=== PATIENT | male | born 1970 | race Caucasian/White ===

== ENCOUNTER → 2017-02-16 | Outpatient (REF) | payer OTHER | LOC: M SFHCPLAZ 10:09 | PROVIDERS: ATTEND Internal Medicine | DX: E03.9 Hypothyroidism, unspecified (principal) ==

== ENCOUNTER → 2017-10-27 | Outpatient (REF) | payer OTHER ==
[2017-10-27 12:33] LABS: HEMATOCRIT 47.7 % (42.0-52.0); HEMOGLOBIN 15.9 g/dl (14.0-18.0); MEAN CORPUSCULAR HEMOGLOBIN 29.2 pg (27.0-33.0); MEAN CORPUSCULAR HGB CONC 33.3 g/dl (32.0-36.5); MEAN CORPUSCULAR VOLUME 87.5 fl (80.0-96.0); PLATELET COUNT, AUTOMATED 261 10^3/uL (150-450); RED BLOOD COUNT 5.45 10^6/uL (4.30-6.10); RED CELL DISTRIBUTION WIDTH 12.7 % (11.5-14.5); WHITE BLOOD COUNT 5.1 10^3/uL (4.0-10.0)
[2017-10-27 13:18] LABS: TOTAL 25(OH) VITAMIN D 41.5 NG/ML (30.0-100.0); VITAMIN B12 LEVEL 570 PG/ML (247-911)
[2017-10-27 13:19] LABS: FOLATE 11.2 NG/ML (>5.4)
[2017-10-27 13:38] LABS: ALBUMIN 4.1 GM/DL (3.2-5.2); ALBUMIN/GLOBULIN RATIO 1.32 (1.00-1.93); ALKALINE PHOSPHATASE 86 U/L (45-117); ALT/SGPT 32 U/L (12-78); ANION GAP 4 MEQ/L (8-16); AST/SGOT 29 U/L (7-37); BILIRUBIN,TOTAL 0.4 MG/DL (0.2-1.0); BLOOD UREA NITROGEN 16 MG/DL (7-18); CALCIUM LEVEL 8.5 MG/DL (8.5-10.1); CARBON DIOXIDE LEVEL 30 MEQ/L (21-32); CHLORIDE LEVEL 109 MEQ/L (98-107); CHOLESTEROL LEVEL 171 MG/DL (<200); CHOLESTEROL RISK RATIO 6.333 (<5); CREATININE FOR GFR 1.28 MG/DL (0.70-1.30); GLOMERULAR FILTRATION RATE > 60.0 (>60); GLUCOSE, FASTING 104 MG/DL (70-100); HDL CHOLESTEROL 27 MG/DL (>40); LDL CHOLESTEROL 114.4 MG/DL (<100); NON-HDL-C 144 MG/DL; POTASSIUM SERUM 4.5 MEQ/L (3.5-5.1); PSA SCREENING 2.23 NG/ML (< 4.0); SODIUM LEVEL 143 MEQ/L (136-145); THYROID STIMULATING HORMONE 0.854 uIU/ML (0.358-3.740); TOTAL PROTEIN 7.2 GM/DL (6.4-8.2); TRIGLYCERIDES LEVEL 148 MG/DL (<150)
== END ==
LOC: M SFHCADAM 08:26
DX: E03.9 Hypothyroidism, unspecified (principal); E78.00 Pure hypercholesterolemia, unspecified; R53.83 Other fatigue; E55.9 Vitamin D deficiency, unspecified

== ENCOUNTER → 2018-04-14 | Outpatient (REF) | payer OTHER ==
[2018-04-14 13:40] LABS: ALBUMIN/GLOBULIN RATIO 1.11 (1.00-1.93); ALKALINE PHOSPHATASE 98 U/L (45-117); ALT/SGPT 42 U/L (12-78); ANION GAP 6 MEQ/L (8-16); AST/SGOT 35 U/L (7-37); BILIRUBIN,TOTAL 0.6 MG/DL (0.2-1.0); BLOOD UREA NITROGEN 18 MG/DL (7-18); CALCIUM LEVEL 8.8 MG/DL (8.5-10.1); CARBON DIOXIDE LEVEL 30 MEQ/L (21-32); CHLORIDE LEVEL 108 MEQ/L (98-107); CHOLESTEROL LEVEL 187 MG/DL (<200); CHOLESTEROL RISK RATIO 7.192 (<5); FREE T4 1.03 NG/DL (0.76-1.46); GLOMERULAR FILTRATION RATE > 60.0 (>60); GLUCOSE, FASTING 99 MG/DL (70-100); HDL CHOLESTEROL 26 MG/DL (>40); LDL CHOLESTEROL 114.4 MG/DL (<100); NON-HDL-C 161 MG/DL; POTASSIUM SERUM 4.8 MEQ/L (3.5-5.1); SODIUM LEVEL 144 MEQ/L (136-145); TOTAL PROTEIN 7.6 GM/DL (6.4-8.2); TRIGLYCERIDES LEVEL 233 MG/DL (<150)
[2018-04-14 14:16] LABS: ESTIMATED AVERAGE GLUCOSE 117 MG/DL (60-110); HEMOGLOBIN A1c 5.7 %
== END ==
LOC: M SFHCADAM 08:32
DX: E78.00 Pure hypercholesterolemia, unspecified (principal); E03.9 Hypothyroidism, unspecified; R73.03 Prediabetes

== ENCOUNTER → 2019-05-12 | Outpatient (REF) | payer OTHER | LOC: M SFHCPLAZ 16:51 | PROVIDERS: ATTEND Dermatology | DX: D49.2 Neoplasm of unspecified behavior of bone, soft tissue, and skin (principal) ==

== ENCOUNTER → 2019-08-11 | Outpatient (CLI) | payer OTHER ==
--- NOTE | 2019-08-11 11:13 | REP ---
Lumbar spine series: Five views. History: Low back sprain. Findings: There are clips in right upper quadrant post cholecystectomy. Lumbar vertebral body heights are preserved. Alignment is normal. There is mild disc space narrowing at L4-5. Other disc spaces are preserved. Pedicles and posterior elements are intact. There is no evidence of spondylolysis or spondylolisthesis. Sacrum and SI joints are unremarkable. Psoas margins are symmetric. Impression: Mild degenerative narrowing of the L4-5 disc. Otherwise negative. Electronically Signed by Vance Arevalo MD 08/11/2019 11:05 A
== END ==
LOC: M ADAMS 08:48
PROVIDERS: ATTEND Family Medicine
DX: M48.061 Spinal stenosis, lumbar region without neurogenic claudication (principal); S33.5XXA Sprain of ligaments of lumbar spine, initial encounter; X58.XXXA Exposure to other specified factors, initial encounter

== ENCOUNTER → 2019-08-11 | Outpatient (REF) | payer OTHER ==
[2019-08-11 13:07] LABS: HEMATOCRIT 46.3 % (42.0-52.0); HEMOGLOBIN 14.9 g/dl (13.5-17.5); MEAN CORPUSCULAR HEMOGLOBIN 28.7 pg (27.0-33.0); MEAN CORPUSCULAR HGB CONC 32.2 g/dl (32.0-36.5); MEAN CORPUSCULAR VOLUME 89.2 fl (80.0-96.0); PLATELET COUNT, AUTOMATED 307 10^3/uL (150-450); RED BLOOD COUNT 5.19 10^6/uL (4.30-6.10); WHITE BLOOD COUNT 5.5 10^3/uL (4.0-10.0)
[2019-08-11 13:22] LABS: ALBUMIN 3.6 GM/DL (3.2-5.2); ALT/SGPT 37 U/L (12-78); BILIRUBIN,TOTAL 0.4 MG/DL (0.2-1.0); BLOOD UREA NITROGEN 20 MG/DL (7-18); CALCIUM LEVEL 9.1 MG/DL (8.5-10.1); CARBON DIOXIDE LEVEL 31 MEQ/L (21-32); CHLORIDE LEVEL 107 MEQ/L (98-107); CHOLESTEROL LEVEL 170 MG/DL (<200); CREATININE FOR GFR 1.33 MG/DL (0.70-1.30); FREE T4 1.04 NG/DL (0.76-1.46); GLOMERULAR FILTRATION RATE > 60.0 (>60); GLUCOSE, FASTING 98 MG/DL (70-100); HDL CHOLESTEROL 25 MG/DL (>40); LDL CHOLESTEROL 118 MG/DL (<100); MAGNESIUM LEVEL 2.2 MG/DL (1.8-2.4); NON-HDL-C 145 MG/DL; POTASSIUM SERUM 4.5 MEQ/L (3.5-5.1); SODIUM LEVEL 141 MEQ/L (136-145); TRIGLYCERIDES LEVEL 137 MG/DL (<150)
[2019-08-11 14:45] LABS: HEMOGLOBIN A1c 5.8 %
== END ==
LOC: M SFHCADAM 08:48
PROVIDERS: ATTEND Family Medicine
DX: K62.5 Hemorrhage of anus and rectum (principal); K52.9 Noninfective gastroenteritis and colitis, unspecified; E03.9 Hypothyroidism, unspecified; R73.03 Prediabetes; Z12.5 Encounter for screening for malignant neoplasm of prostate
CPT/HCPCS: 80053; 80061; 83036; 83735; 84439; 84443; 85027; G0103

== ENCOUNTER → 2019-08-29 | Outpatient (CLI) | payer OTHER ==
--- NOTE | 2019-08-29 10:18 | REP ---
Clinical: Dyspnea. Technique: PA and lateral. Comparison: 11/24/2010. Findings: Mediastinum and cardiac silhouette are normal. Lung mccormick are clear. No consolidation. No effusion. No pneumothorax. Skeletal structures intact. Impression: No acute cardiopulmonary process appreciated. Electronically Signed by Ranulfo Nieves MD 08/29/2019 10:11 A
== END ==
LOC: M ADAMS 09:53
PROVIDERS: ATTEND Family Medicine
DX: J45.41 Moderate persistent asthma with (acute) exacerbation (principal)

== ENCOUNTER → 2019-09-18 | Outpatient (CLI) | payer OTHER ==
[~2019-09-18] MED LIST: PROHANCE 279.3MG/ML 15ML VIAL (A9576) As Ordered ONE; PROHANCE 279.3MG/ML 5ML VIAL (A9576) As Ordered ONE
--- NOTE | 2019-09-18 16:31 | REPVR ---
PROCEDURE INFORMATION: Exam: MR Lumbar Spine Without and With Contrast. Exam date and time: 09/18/2019 3:11 PM Age: 49 years old Clinical indication: Low back pain; Patient HX: Lbp; Additional info: Lumbar ddd radiculopathy lbp TECHNIQUE: Imaging protocol: Multiplanar magnetic resonance images of the lumbar spine without and with intravenous contrast. Contrast material: ProHance; Contrast volume: 16 ml; Contrast route: 22G ANGIO; COMPARISON: DX SPINE LS COMPLETE 08/11/2019 8:40 AM FINDINGS: Vertebrae: No destructive bony process identified. No acute or chronic bony fracture identified. Spinal cord: The conus tip is at the lower T12 level. Normal signal. No cord compression. No abnormal postcontrast enhancement. L1-L2: No significant disc disease. No significant spinal stenosis. L2-L3: No significant disc disease. No significant spinal stenosis. L3-L4: No significant disc disease. No significant spinal stenosis. L4-L5: Mild disc desiccation (Pfirrmann 3). Mild posterior annular bulging. Central annular fissure without focal disc protrusion. The AP thecal sac dimension is 7.0 mm. Mild RIGHT primary facet osteoarthritis. L5-S1: Mild posterior annular bulging and spondylosis. The AP thecal sac dimension is 11.4 mm. Soft tissues: Unremarkable. IMPRESSION: Moderate L4-5 spinal stenosis. Electronically signed by: Jaison Fisher On 09/18/2019 16:30:38 PM
== END ==
LOC: M RAD 13:21
PROVIDERS: ATTEND Family Medicine
DX: M48.061 Spinal stenosis, lumbar region without neurogenic claudication (principal); M51.37 Other intervertebral disc degeneration, lumbosacral region; M54.16 Radiculopathy, lumbar region
CPT/HCPCS: 72158; A9576

== ENCOUNTER → 2020-06-27 | Outpatient (REF) | payer OTHER ==
[2020-06-27 13:19] LABS: HEMATOCRIT 50.5 % (42.0-52.0); HEMOGLOBIN 16.7 g/dl (13.5-17.5); MEAN CORPUSCULAR HEMOGLOBIN 28.8 pg (27.0-33.0); MEAN CORPUSCULAR HGB CONC 33.1 g/dl (32.0-36.5); MEAN CORPUSCULAR VOLUME 87.2 fl (80.0-96.0); PLATELET COUNT, AUTOMATED 284 10^3/uL (150-450); RED BLOOD COUNT 5.79 10^6/uL (4.30-6.10); WHITE BLOOD COUNT 5.9 10^3/uL (4.0-10.0)
[2020-06-27 13:37] LABS: ALBUMIN 3.9 GM/DL (3.2-5.2); BILIRUBIN,TOTAL 0.5 MG/DL (0.2-1.0); CALCIUM LEVEL 9.3 MG/DL (8.5-10.1); CHOLESTEROL RISK RATIO 7.148 (<5); CREATININE FOR GFR 1.36 MG/DL (0.70-1.30); FREE T4 1.32 NG/DL (0.76-1.46); GLOMERULAR FILTRATION RATE 59.5 (>60); POTASSIUM SERUM 4.2 MEQ/L (3.5-5.1); THYROID STIMULATING HORMONE 0.053 uIU/ML (0.358-3.740); TOTAL PROTEIN 7.4 GM/DL (6.4-8.2)
[2020-06-27 13:38] LABS: HEMOGLOBIN A1c 5.5 %
== END ==
LOC: M SFHCADAM 09:11
PROVIDERS: ATTEND Family Medicine
DX: R05 Cough (principal); E03.9 Hypothyroidism, unspecified; R73.03 Prediabetes; Z12.5 Encounter for screening for malignant neoplasm of prostate
CPT/HCPCS: 80053; 80061; 83036; 84439; 84443; 85027; G0103

== ENCOUNTER → 2020-06-27 | Outpatient (CLI) | payer OTHER ==
--- NOTE | 2020-07-04 08:59 | REP ---
CHEST X-RAY: 3-VIEWS HISTORY: Chronic cough. COMPARISON: Chest x-ray 08/29/2019. FINDINGS: The lungs remain well-inflated and clear. Pleural angles are sharp. Heart is not enlarged. Pulmonary vasculature is not increased. No significantly bony abnormality is seen. There are surgical clips in the right upper quadrant post cholecystectomy. IMPRESSION: No acute disease. MTDD
== END ==
LOC: M ADAMS 09:19
PROVIDERS: ATTEND Family Medicine
DX: R05 Cough (principal)

== ENCOUNTER → 2020-07-10 | Outpatient (CLI) | payer OTHER ==
--- NOTE | 2020-07-10 10:43 | PFTRPT ---
Height: 69.00 Inches Weight: 185.00 Lbs BSA: 2.00 Diagnosis: R05 DATE: 07/10/2020 ORDERING PHYSICIAN: YUSUF Cronin Pre and post bronchodilator studies have excellent technical quality. Forced vital capacity is normal. FEV1 is in proportion, obstructive index is therefore normal. Expiratory limit of the flow-volume loop is normal. No significant bronchodilator response is identified. Total lung capacity is mildly elevated. Residual volume does suggest a degree of air trapping. Diffusing capacity is normal. No hemoglobin available for correction. Airway resistance and conductance are normal. IMPRESSION: Probably normal study. MTDD
== END ==
LOC: M CARPUL 10:03
PROVIDERS: ATTEND Physician Assistant
DX: R05 Cough (principal)

== ENCOUNTER → 2020-07-17 | Outpatient (CLI) | payer OTHER ==
[~2020-07-17] MED LIST changes: +METHACHOLINE KIT (J7674) INH ONE; -PROHANCE 279.3MG/ML 15ML VIAL (A9576) As Ordered ONE; -PROHANCE 279.3MG/ML 5ML VIAL (A9576) As Ordered ONE
--- NOTE | 2020-07-17 14:41 | PFTRPT ---
Height: 69.00 Inches Weight: 185.00 Lbs BSA: 2.00 Diagnosis: R05 DATE: 07/17/2020 ORDERED BY: Yves Juarez M.D. QUALITY: Study of excellent technical quality. PROCEDURE: Under protocol, methacholine was administered. At a dose of 2.5 mg, or 13.875 CDUs, a 27% decline in the FEV1 was noted. PC of 0.54 is significant. Flow rates did return to baseline post bronchodilator administration. IMPRESSION: Positive methacholine challenge study. MTDD
== END ==
LOC: M CARPUL 13:56
PROVIDERS: ATTEND Physician Assistant
DX: R05 Cough (principal)
CPT/HCPCS: 94070; J7674

== ENCOUNTER → 2020-10-04 | Outpatient (REF) | payer OTHER | LOC: M SMT 17:16 | PROVIDERS: ATTEND Urology | DX: Z30.2 Encounter for sterilization (principal) ==

== ENCOUNTER → 2020-12-10 | Outpatient (REF) | payer OTHER ==
[2020-12-10 11:07] LABS: SEMEN APPEARANCE OPAQUE (OPAQUE); SEMEN VISCOSITY VISCOUS (LIQUID); SEMEN VOLUME 0.9 ml (2.0-5.0)
[2020-12-10 11:08] LABS: WBC CONCENTRATION <=1 M/ml (<=1 M/ml)
== END ==
LOC: M SMT 10:59
PROVIDERS: ATTEND Urology
DX: Z98.52 Vasectomy status (principal)

== ENCOUNTER → 2021-04-10 | Outpatient (CLI) | payer OTHER ==
--- NOTE | 2021-04-10 09:12 | REP ---
INDICATION: MEDIAL EPICONDYLE APOPHYSITIS DUE TO OVERUSE COMPARISON: None. TECHNIQUE: AP, lateral, bilateral oblique views of the right elbow. FINDINGS: No acute fracture or dislocation is appreciated. Joint spaces and surrounding soft tissues appear normal. Lateral view demonstrates normal positioning to the anterior and posterior fat pads without evidence for effusion/hemarthrosis. No subcutaneous emphysema or foreign body identified. IMPRESSION: Normal elbow radiographs. <Electronically signed by Ranulfo Nieves > 04/10/21 0975
== END ==
LOC: M ADAMS 08:36
PROVIDERS: ATTEND Family Medicine
DX: M93.929 Osteochondropathy, unspecified, unspecified upper arm (principal)

== ENCOUNTER → 2021-04-23 | Outpatient (CLI) | payer OTHER ==
[2021-04-23 11:08] LABS: BASO % 0.3 % (0.0-1.0); EOS % 0.2 % (0.0-3.0); HEMATOCRIT 50.9 % (42.0-52.0); HEMOGLOBIN 16.9 g/dl (13.5-17.5); LYMPH # 1.6 10^3/uL (1.5-5.0); LYMPH % 13.7 % (24.0-44.0); MEAN CORPUSCULAR HGB CONC 33.2 g/dl (32.0-36.5); MEAN CORPUSCULAR VOLUME 87.3 fl (80.0-96.0); MONO # 1.1 10^3/uL (0.0-0.8); MONO % 9.2 % (2.0-8.0); NEUTROPHILS # 9.1 10^3/uL (1.5-8.5); NEUTROPHILS % 76.2 % (36.0-66.0); PLATELET COUNT, AUTOMATED 294 10^3/uL (150-450); RED BLOOD COUNT 5.83 10^6/uL (4.30-6.10); WHITE BLOOD COUNT 11.9 10^3/uL (4.0-10.0)
--- NOTE | 2021-04-23 11:23 | REP ---
INDICATION: ACUTE DIVERTICULITIS. COMPARISON: None. TECHNIQUE: Noncontrast scanning through the abdomen and pelvis with coronal and sagittal reconstructions. FINDINGS: CT abdomen: Some minor curvilinear atelectatic change inferior lingular segment of the left upper lobe at the anterior left lung base. There is a 5 mm nodule medial segment on image 9 of the right middle lobe. The lung bases otherwise clear. Heart is not enlarged with no pericardial thickening or effusion. No hiatal hernia. The liver, spleen, pancreas and adrenal glands are normal. The gallbladder surgically absent. Kidneys show no stone, cyst, solid mass or hydronephrosis. There is no hydroureter or ureteral stone on either side. Abdominal course of the colon shows stool and gas without signs of colitis or diverticulitis in the abdomen proper appendix is seen and normal. Small bowel loops are unremarkable. Lung window review shows no evidence of a perforation or free air in the abdomen proper. Bone windows show lumbar, lower thoracic spine, their posterior elements and visualized ribs all grossly intact. CT pelvis: Sacrum, SI joints, pelvis and hips are without acute bony findings. There is some minimal degenerative spurring and acetabular margins. The mid to distal sigmoid just above its junction with the rectum shows infiltration of pericolonic fat. There is no micro perforation or abscess. There is no pelvic ascites. Distal small bowel loops were unremarkable. Bladder shows no wall thickening, mass or stone. There are a few small pelvic phleboliths. No ventral or inguinal hernia nor pathologic sized inguinal adenopathy. IMPRESSION: 1. Acute diverticulitis in the mid to distal sigmoid just above the rectum with some mild pericolonic inflammatory changes in the adjacent fat but no perforation, abscess or pelvic ascites. Remainder of the pelvic and abdominal portion of colon and rectum unremarkable. Appendix seen and normal. 2. Status post cholecystectomy. No other significant or acute finding <Electronically signed by Nicholas Lux > 04/23/21 [id number]
[2021-04-23 11:36] LABS: ALBUMIN 4.2 GM/DL (3.2-5.2); BILIRUBIN,TOTAL 0.9 MG/DL (0.2-1.0); CALCIUM LEVEL 9.1 MG/DL (8.5-10.1); CREATININE FOR GFR 1.45 MG/DL (0.70-1.30); GLOMERULAR FILTRATION RATE 55.1 (>60); POTASSIUM SERUM 4.5 MEQ/L (3.5-5.1); TOTAL PROTEIN 7.8 GM/DL (6.4-8.2)
== END ==
LOC: M RAD 10:25
PROVIDERS: ATTEND Family Medicine
DX: K57.32 Diverticulitis of large intestine without perforation or abscess without bleeding (principal); Z90.49 Acquired absence of other specified parts of digestive tract

== ENCOUNTER → 2021-06-10 | Outpatient (CLI) | payer OTHER ==
--- NOTE | 2021-06-10 09:11 | REP ---
INDICATION: PAIN IN RT ELBOW. COMPARISON: Radiographs 04/10/2021. TECHNIQUE: Multiple sequences obtained in the axial, coronal and sagittal planes. FINDINGS: .There is no occult fracture. There is mild global chondromalacia, with minor subchondral marrow edema in the coronoid process. The common flexor and extensor tendons demonstrate no abnormal signal. There is no evidence of epicondylitis. The medial and lateral collateral ligaments are intact. The biceps, triceps, brachialis and brachioradialis appear intact. No ganglion cyst is seen. There is a normal amount of joint fluid. No osteochondral defect is seen. There is no abnormal signal in the region of the cubital tunnel. The ulnar nerve demonstrates no significant enlargement or abnormal signal. IMPRESSION: There is mild global chondromalacia, with minor subchondral marrow edema in the coronoid process. No other significant findings. <Electronically signed by Alfredo Baum > 06/10/21 0907
== END ==
LOC: M PLAIMG 07:53
PROVIDERS: ATTEND Orthopaedic Surgery
DX: M25.521 Pain in right elbow (principal)

== ENCOUNTER → 2021-07-31 | Outpatient (CLI) | payer OTHER ==
[~2021-07-31] MED LIST changes: +BREO1INH INH; +LEVO137T2 PO; +MELO15TA28 PO; -METHACHOLINE KIT (J7674) INH ONE; +PANT40TA29 PO
== END ==
LOC: M LABSMTC 09:28
PROVIDERS: ATTEND Anesthesiology
DX: Z01.812 Encounter for preprocedural laboratory examination (principal); Z20.822 Contact with and (suspected) exposure to COVID-19

== ENCOUNTER 2021-08-05 09:46 | Day surgery (SDC) | payer OTHER ==
[~2021-08-05] VITALS: Ht 175.3 cm; Wt 88.0 kg
[~2021-08-05 09:46] MED LIST changes: +NS 1,000 ML IV ONE
--- OUTSIDE RECORDS SUMMARY | 2021-08-05 09:49 | CCD ---
Author Author [facility] [employer] [facility] [employer] Organization [facility] [employer] Address Unknown Phone Unavailable Care Team Providers Care Canvassing Manager Name Role Phone Yves Juarez Unavailable PROBLEMS Type Condition ICD9-CM Code LMR45-MA Code Onset Dates Condition S tatus W/U Status Risk SNOMED Code Notes Problem Allergic rhinitis J30.9 Active confirmed 61 076897 He will continue his intranasal steroids as needed. I think his blood shot eyes may relate to allergic conjunctivitis and Flonase may help this. Problem Bilateral knee pain M25.561 Active confirmed 35385166 Problem Hypothyroidism E03.9 Active confirmed 55488 008 Hypothyroidism since Summer 2009, at which time his TSH was 377. Has a family history of thyroid disease. On replacement. Problem Primary insomnia F51.01 Active confirmed 397 2004 Problem Functional diarrhea K59.1 Active confirmed 70101844 Problem Vitamin D deficiency E55.9 Active confirmed 56748290 Problem Screening for prostate cancer Z12.5 Active confirm ed 828786458 Problem Moderate persistent asthmatic bronchitis with ac anny exacerbation J45.41 Active confirmed 564317418989145 Problem Degenerative disc disease, lumbar M51.36 Active confirmed 65155919 Problem Seborrheic keratoses L82.1 Active confirmed 193389025 Problem Melanocytic nevi of trunk D22.5 Active confirmed 719404177 Problem Chronic diarrhea K52.9 Active confirmed 236 341886 Problem Actinic keratosis L57.0 Active confirmed 20 0409971 Problem Sprain of low back, initial encounter S33.5XXA A ctive confirmed 987119730 Problem Dyslipidemia E78.5 Active confirmed 1454653 07 Problem Degeneration, intervertebral disc, lumbosacral M51 .37 Active confirmed 10738207 Problem Maxillary sinusitis, unspecified chronicity J32.0 Active confirmed 17669375 Problem Chronic coughing R05 Active confirmed 681 32759 Problem Vasectomy status Z98.52 Active confirmed 161 063113 Problem Sterilization Z30.2 Active confirmed 257316 006 Problem Acute diverticulitis K57.92 Active confirmed 762647997 Problem Melanocytic nevi of left upper limb, including shoulder D22.62 Active confirmed 164410480 Problem Medial epicondyle apophysitis due to overuse M93.9 29 Active confirmed 1014089104327 Problem Prediabetes R73.03 Active confirmed 55292837 2 Problem Melanocytic nevi of right upper limb, including shoulder D22.61 Active confirmed 087768926 Problem Asthma, cough variant J45.991 Active confirmed 687106712 Problem Elevated serum creatinine R79.89 Active confirmed 460369795 elevated creatinine reflects heavily muscled frame, not CKD Problem Moderate persistent asthma without complication J4 5.40 Active confirmed 551184181 Problem Hypercholesterolemia E78.0 Active confirmed 97532595 ALLERGIES Allergen (clinical drug ingredient) Drug/Non Drug Allergy do cumented on EMR Reaction Allergy Type Onset Date Status Penicillin (For Allergies Use Only) Hives Drug Allerg y Active ENCOUNTERS from 1972 to 2021-07-22 Encounter Location Date Provider Diagnosis [facility] [address] [place] [address] Jun, Yves Juarez Medial epicondyle apophysitis due to ove ruse M93.929 ; Hypothyroidism E03.9 ; Prediabetes R73.03 ; Moderate persistent asthma without complication J45.40 ; Hypercholesterolemia E78.0 ; Elevated serum creatinine R79.89 and Screening for prostate cancer Z12.5 IMMUNIZATIONS Vaccine Route Administration Date Status Influenza 18 yrs & older Flublok IM Intramuscular Jun 27, 2020 Administered Influenza 18 yrs & older Flublok IM Intramuscular Aug 29, 2019 Administered TDAP Unknown December 26, 2008 Administered Influenza 6mo & up Fluzone IM Intramuscular Sep 22, 2016 Admi nistered Influenza 6mo & up Fluzone IM Intramuscular Sep 16, 2015 Admi nistered Influenza 6mo & up Fluzone Unknown Aug 06, 2014 Admin istered SOCIAL HISTORY Tobacco Use: Social History Observation Description Date Details (start date - stop date) Never Smoker Sex Assigned At : Social History Observation Description Sex Assigned At Unknown Audit Question Answer Notes Total Score: 2 Interpretation: Alcohol Education Language: Question Answer Notes Languages spoken: Wallisian Jewish: Question Answer Notes Jewish No mandaen beliefs that would impact health care. Sexual Hx: Question Answer Notes Had sex in the last 12 months (vaginal, oral, or anal)? Yes Have you ever had an STD? No with Women only Drug and Alcohol Question Answer Notes Total Score: 0 Interpretation: No problems reported Alcohol Screening: Question Answer Notes Did you have a drink containing alcohol in the past year? Ye s Points 3 Interpretation Negative How often did you have six or more drinks on one occas ion in the past year? Never (0 points) How many drinks did you have on a typica l day when you were drinking in the past year? 1 or 2 (0 points) How often did you have a drink containing alcohol in t he past year? Two to three times per week (3 points) Tobacco Use: Question Answer Notes Are you a: never smoker REASON FOR REFERRAL No Information VITAL SIGNS Weight 195 lbs Jun, Height 69 in Jun, BMI 28.79 kg/m2 Jun, Heart Rate 58 /min Jun, Respiratory Rate 18 /min Jun, Temperature 97.6 degrees Fahrenheit Jun, Oximetry 97 Jun, Blood pressure systolic 122 mm Hg Jun, Blood pressure diastolic 72 mm Hg Jun, MEDICATIONS Medication SIG (Take, Route, Frequency, Duration) Notes Start Da te End Date Status Breo Ellipta 100-25 MCG/INH 1 puff Inhalation Once a day Active Pantoprazole Sodium 40 MG 1 tablet Orally Once a day for 30 day( s) Dec, Active metroNIDAZOLE 500 MG 1 tablet Orally Three times a day for 10 da y(s) Mar, Not-Taking Levothyroxine Sodium 137 MCG TAKE ONE TABLET BY MOUTH EVERY MORNING ON AN EMPTY STOMACH Active Voltaren 1 % to knees Externally three times daily for 30 Days Mar, Active Proventil HFA 108 (90 Base) MCG/ACT 2 puffs as needed Inhalation every 4 hrs for cough/wheezing Active tiZANidine HCl 4 MG 1 tablet as needed Orally th ree times daily as needed for 5 day(s) Aug, Not-Taking Cipro 500 MG 1 tablet Orally every 12 hrs for 10 day(s) Mar, Not-Taking Meloxicam 15 MG 1 tablet Orally once daily as needed for 30 day( s) Aug, Active PROCEDURES No Information RESULTS No Results REASON FOR VISIT 3 month MEDICAL (GENERAL) HISTORY Type Description Date Medical History hypothyroidism Medical History hyperlipidemia/low HDL Medical History allergies Medical History mild BPH Medical History early repolarization on EKG Medical History prediabetes 11/14 Medical History asthma, cough variant--+ methacholine ch allenge 07/16 Medical History (baseline creatinine ~ 1.3-1 .5--reflects heavily muscled frame, not CKD) Surgical History Laparascopic cholecystectomy 07/2002 Surgical History LASIK Eye Surgery 07/[address] Tate removed mole from back-biopsy negative 07/2015 Surgical History vasectomy 10/17 Goals Section No Information Health Concerns No Information MEDICAL EQUIPMENT No Information MENTAL STATUS No Information FUNCTIONAL STATUS No Information ASSESSMENTS Encounter Date Diagnosis Assessment Notes Treatment Notes Treatm ent Clinical Notes Jun, Medial epicondyle apophysitis due to overuse (IC D-10 - M93.929) Jun, Hypothyroidism (ICD-10 - E03.9) Hypothyr oidism since Summer 2009, at which time his TSH was 377. Has a family history of thyroid disease. On replacement. Jun, Prediabetes (ICD-10 - R73.03) Jun, Moderate persistent asthma without compl ication (ICD-10 - J45.40) Jun, Hypercholesterolemia (ICD-10 - E78.0) Jun, Elevated serum creatinine (ICD-10 - R79. 89) elevated creatinine reflects heavily muscled frame, not CKD Jun, Screening for prostate cancer (ICD-10 - Z12.5) PLAN OF TREATMENT Medication Medication Name Sig Start Date Stop Date Proventil HFA 108 (90 Base) MCG/ACT 2 puffs as needed Inhalation every 4 hrs for cough/wheezing Breo Ellipta 100-25 MCG/INH 1 puff Inhalation Once a day Meloxicam 15 MG 1 tablet Orally once daily as needed for 30 day( s) Aug, Levothyroxine Sodium 137 MCG TAKE ONE TABLET BY MOUTH EVERY MORNING ON AN EMPTY STOMACH Future Test Test Name Order Date FREE T4 & TSH PANEL 20211117 LIPID PANEL (CARDIAC RISK) 20211117 Comprehensive Metabolic Profile (CMP) 20211117 HEMOGLOBIN A1c 20211117 PSA SCREENING 20211117 CBC - Complete Blood Count 20211117 Next Appt Details 4 Months with labs Reason: Insurance Providers Payer Name Payer Address Payer Phone Insured Name Patient Relati onship to Insured Coverage Start Date Coverage End Date [facility] [address] [address] [facility] [phone] Crista Sanchez
--- OUTSIDE RECORDS SUMMARY | 2021-08-05 09:49 | CCD | Continuity of Care Document ---
Author Author Harish GUTHRIE MD Organization Unknown Address [address] [address] Phone [phone] Care Team Providers Care Coil Placer Name Role Phone Yves Juarez MD AUTM [phone] Problems Description No Information Available Social History Type Date Description Comments Sex Unknown Allergies, Adverse Reactions, Alerts Description No Information Available Medications Active Medications SIG Qnty Indications Ordering Provide r Date Mobic 15mg Tablets 1 by mouth every day with food or milk 30tabs M25.421 Burke Guthrie MD 06/17 Immunizations Description No Information Available Vital Signs Date Vital Result Comment 05/19/2021 1:56pm Body Temperature 97.5 F Height 68 inches 5'8" Weight 194.00 lb BMI (Body Mass Index) 29.5 kg/m2 Results Description No Information Available Procedures Date Code Description Status 06/17/2021 91040 Office/Outpatient Established Lo w MDM 20-29 Min Completed 05/19/2021 89546 Office/Outpatient New Moderate M DM 45-59 Minutes Completed Medical Devices Description No Information Available Encounters Type Date Location Provider Dx Diagnosis Office Visit 06/17/2021 3:00p Josh Guthrie MD M2 5.421 Effusion, right elbow M25.521 Pain in right elbow Office Visit 05/19/2021 1:30p Josh Guthrie MD M2 5.521 Pain in right elbow Assessments Date Code Description Provider 06/17/2021 M25.421 Effusion, right elbow Burke araujo MD 06/17/2021 M25.521 Pain in right elbow Burke Awan MD 05/19/2021 M25.521 Pain in right elbow Burke Awan MD Plan of Treatment 06/17/2021 - Burke Guthrie MD* M25.421 Effusion, right elbow* New Medication:* Mobic 15 mg - 1 by mouth every day with food or milk * Follow up:* F/U PRN * M25.521 Pain in right elbow Functional Status Description No Information Available Mental Status Description No Information Available Referrals Refer to Dr Reason for Referral Status Appt Date James Guthrie MD MRI APPROVED PER EULALIA FOR MRI OF RIGHT ELBOW (08616) TO KYLIE Becerra [facility] [facility], [address] [place] [address] [phone]
--- OUTSIDE RECORDS SUMMARY | 2021-08-05 09:49 | CCD | Continuity of Care Document ---
Author Author Harish RODRÍGUEZ MD Organization Unknown Address [address] [place] [address] Phone [phone] Care Team Providers Care Research Statistician Name Role Phone Yves Juarez M.D. [facility] [phone] Problems Description No Information Available Social History Type Date Description Comments Sex Unknown ETOH Use 2 A Week Tobacco Use Start: Unknown Non Smoker Allergies and adverse reactions Active Allergies Criticality Reaction | Severity Comments Date Penicillin G Unable to assess criticality 06/19/2021 Medications Active Medications SIG Qnty Indications Ordering Provide r Date Magnesium Citrate 1.745GM/30ML Gwendolyn ution one 10 oz bottle green or clear only, use for additional prep at 2-3 days before procedure 296ml R12 Braxton Rodríguez MD 06/19/2021 Miralax 17GM/Scoop Powder use as directed see dr rodríguez colon preparation instructions 510gm R12 Kyle wing Rodríguez MD 06/19/2021 Levothyroxine Sodium 125mcg Capsul es daily Unknown Pantoprazole Sodium 40mg Tablets DR Daily Unknown Breo Ellipta 100-25mcg/Inh Aerosol 1 inhalation daily Unknown History Medications Milk Of Magnesia 7.75% Suspension take 45 milliliters by mouth about 1-2 days before colonoscopy prep 360ml R12 Braxton Rodríguez MD 06/19/2021 - 06/19/2021 Immunizations Description No Information Available Vital Signs Date Vital Result Comment 06/19/2021 10:50am BP Systolic 119 mmHg BP Diastolic 85 mmHg Height 69 inches 5'9" Weight 190.00 lb BMI (Body Mass Index) 28.1 kg/m2 [place] Body Weight 160 lb Weight 86.184 kg BSA (Body Surface Area) 2.02 m2 Results Description No Information Available Procedures Date Code Description Status 06/19/2021 12299 Office/Outpatient New Moderate M DM 45-59 Minutes Completed Medical Devices Description No Information Available Encounters Type Date Location Provider Dx Diagnosis Office Visit 06/19/2021 10:40a [facility] Braxton Rodríguez MD K57.33 Dvtrcli of lg int w/o perfor ation or abscess w bleeding K21.9 Gastro-esophageal reflux dis ease without esophagitis Assessments Date Code Description Provider 06/19/2021 K57.33 Diverticulitis of la rge intestine without perforation or abscess with bleeding Braxton Rodríguez MD 06/19/2021 K21.9 Gastro-esophageal reflux disease without esophagitis Braxton Rodríguez MD Plan of Treatment 06/19/2021 - Braxton Rodríguez MD* K57.33 Diverticulitis of large intestine without perforation or abscess with bleeding * K21.9 Gastro-esophageal reflux disease without esophagitis * * Recommendations:* GERD: smaller meals, avoid late night eating/laying down for 4 hrs after meals.--EGD, Cont PPI for now Diverticulitis: Colonoscopy to follow up abnormal CT Functional Status Description No Information Available Mental Status Description No Information Available Referrals Refer to Reason for Referral Status Appt Date Braxton Rodríguez M.D. EPIGASTRIC PAIN/NAUSEA Scheduled [facility], Gastroenterology [address] [facility] [address], [address] [place] [address] [phone]
--- OUTSIDE RECORDS SUMMARY | 2021-08-05 09:49 | CCD | Continuity of Care Document ---
Author Author Harish RODRÍGUEZ MD Organization Unknown Address [address] [place] [address] Phone [phone] Care Team Providers Care Electronic Tester Name Role Phone Yves Juarez M.D. [facility] [phone] Problems Description No Information Available Social History Type Date Description Comments Sex Unknown ETOH Use 2 A Week Tobacco Use Start: Unknown Non Smoker Allergies, Adverse Reactions, Alerts Active Allergies Criticality Reaction | Severity Comments [...] lb BMI (Body Mass Index) 28.1 kg/m2 [place] Body Weight 160 lb Weight 86.184 kg BSA (Body Surface Area) 2.02 m2 Results Description No Information Available Procedures Date Code Description Status 06/19/2021 80072 Office/Outpatient New Moderate M DM 45-59 Minutes Completed Medical Devices Description No Information Available Encounters Type Date Location Provider Dx Diagnosis Office Visit 06/19/2021 10:40a [facility] Pra [facility]ice Braxton Rodríguez MD R12 Heartburn K57.33 Dvtrcli of lg int w/o perfor ation or abscess w bleeding Assessments Date Code Description Provider 06/19/2021 R12 Heartburn Braxton Rodríguez MD 06/19/2021 K57.33 Diverticulitis of la rge intestine without perforation or abscess with bleeding Braxton Rodríguez MD Plan of Treatment 06/19/2021 - Braxton Rodríguez MD* R12 Heartburn * K57.33 Diverticulitis of large intestine without perforation or abscess with bleeding * * New Medication:* Magnesium Citrate 1.745 GM/30ML * Miralax 17 GM/Scoop * Milk Of Magnesia 7.75 % * New Orders:* EGD/Upper Endoscopy, Ordered: 06/19/21 * Endoscopy, Ordered: 06/19/21 * Recommendations:* GERD: smaller meals, avoid late night eating/laying down for 4 hrs after meals.--EGD, Cont PPI for now Diverticulitis: Colonoscopy to follow up abnormal CT Functional Status Description No Information Available Mental Status Description No Information Available Referrals Refer to Reason for Referral Status Appt Braxton Rodríguez M.D. EPIGASTRIC PAIN/NAUSEA Scheduled [facility], Gastroenterology [address] [facility], [address] [place] [address] [phone]
--- OUTSIDE RECORDS SUMMARY | 2021-08-05 09:49 | CCD ---
Continuity of Care Document (CCD) Created on: 05/21/2021 Harish Sanchez External Reference #: [id number] : 1970 Sex: Male Author Author Harish GUTHRIE MD Organization Unknown Address [address] [address] Phone [phone] Care Team Providers Care Ethylbenzene Cracking Supervisor Name Role Phone Yves Juarez MD [facility] [phone] Problems Description No Information Available Social History Type Date Description Comments Sex Unknown Allergies, Adverse Reactions, Alerts Description No Information Available Medications Description No Information Available Immunizations Description No Information Available Vital Signs Date Vital Result Comment 05/19/2021 1:56pm Body Temperature 97.5 F Height 68 inches 5'8" Weight 194.00 lb BMI (Body Mass Index) 29.5 kg/m2 Results Description No Information Available Procedures Date Code Description Status 05/19/2021 98859 Office/Outpatient New Moderate M DM 45-59 Minutes Completed Medical Devices Description No Information Available Encounters Type Date Location Provider Dx Diagnosis Office Visit 05/19/2021 1:30p Isabela Burke Guthrie MD M2 5.521 Pain in right elbow Assessments Date Code Description Provider 05/19/2021 M25.521 Pain in right elbow Burke Awan MD Plan of Treatment 05/19/2021 - Burke Guthrie MD* M25.521 Pain in right elbow* New Xrays:* MRI Right Elbow, Ordered: 05/19/21 * Follow up:* with [facility] after mri for results Functional Status Description No Information Available Mental Status Description No Information Available Referrals Description No Information Available
--- OUTSIDE RECORDS SUMMARY | 2021-08-05 09:50 | CCD | Continuity of Care Document ---
Author Author Harish GUTHRIE MD Organization Unknown Address [address] [place] [address] Phone [phone] Care Team Providers Care Sidewalk Repairer Name Role Phone Yves Juarez MD [facility] [phone] Problems Description No Information Available Social History Type Date Description Comments Sex Unknown Allergies, Adverse Reactions, Alerts Description No Information Available Medications Description No Information Available Immunizations Description No Information Available Vital Signs Date Vital Result Comment 05/19/2021 1:56pm Body Temperature 97.5 F Height 68 inches 5'8" Weight 194.00 lb BMI (Body Mass Index) 29.5 kg/m2 Results Description No Information Available Procedures Description No Information Available Medical Devices Description No Information Available Encounters Description No Information Available Assessments Date Code Description Provider 05/19/2021 M25.521 [...]
--- OUTSIDE RECORDS SUMMARY | 2021-08-05 09:50 | CCD ---
Author Author [facility] Organization [facility] Address Unknown Phone Unavailable Care Team Providers Care Sales Promoter Name Role Phone Bradshaw, Kelli SUPERVISOR VAT [employer]SE Unavailable Unavailable Bradshaw, Kelli SUPERVISOR VAT [employer]SE Unavailable Unavailable Bradshaw, Kelli SUPERVISOR VAT HOUSE Unavailable Unavailable Bradshaw, Kelli SUPERVISOR VAT HOUSE Unavailable Unavailable Bradshaw, Kelli SUPERVISOR VAT HOUSE Unavailable Unavailable Bradshaw, Kelli SUPERVISOR VAT HOUSE Unavailable Unavailable Bradshaw, Kelli SUPERVISOR VAT HOUSE Unavailable Unavailable Bradshaw, Kelli SUPERVISOR VAT HOUSE Unavailable Unavailable Bradshaw, Kelli SUPERVISOR VAT HOUSE Unavailable Unavailable Bradshaw, Kelli SUPERVISOR VAT HOUSE Unavailable Unavailable Bradshaw, Kelli SUPERVISOR VAT HOUSE Unavailable Unavailable Bradshaw, Kelli SUPERVISOR VAT HOUSE Unavailable Unavailable Bradshaw, Kelli SUPERVISOR VAT HOUSE Unavailable Unavailable WALKER RAMIRES MD Unavailable Unavailable WALKER RAMIRES MD Unavailable Unavailable WALKER RAMIRES MD Unavailable Unavailable WALKER RAMIRES MD Unavailable Unavailable WALKER RAMIRES MD Unavailable Unavailable WALKER RAMIRES MD Unavailable Unavailable WALKER RAMIRES MD Unavailable Unavailable WALKER RAMIRES MD Unavailable Unavailable WALKER RAMIRES MD Unavailable Unavailable WALKER RAMIRES MD Unavailable Unavailable WALKER RAMIRES MD Unavailable Unavailable WALKER RAMIRES MD Unavailable Unavailable WALKER RAMIRES MD Unavailable Unavailable WALKER RAMIRES MD Unavailable Unavailable WALKER RAMIRES MD Unavailable Unavailable WALKER RAMIRES MD Unavailable Unavailable WALKER RAMIRES MD Unavailable Unavailable WALKER RAMIRES MD Unavailable Unavailable WALKER RAMIRES MD Unavailable Unavailable WAKLER RAMIRES MD Unavailable Unavailable WALKER RAMIRES MD Unavailable Unavailable WALKER RAMIRES MD Unavailable Unavailable REINDL, WALKER RODAS Unavailable Unavailable REINDL, WALKER RODAS Unavailable Unavailable REINDL, WALKER RODAS Unavailable Unavailable REINDL, WALKER RODAS Unavailable Unavailable REINDL, WALKER RODAS Unavailable Unavailable REINDL, WALKER RODAS Unavailable Unavailable REINDL, WALKER RODAS Unavailable Unavailable REINDL, WALKER RODAS Unavailable Unavailable REINDL, WALKER RODAS Unavailable Unavailable REINDL, WALKER RODAS Unavailable Unavailable REINDL, WALKER RODAS Unavailable Unavailable REINDL, WALKER RODAS Unavailable Unavailable REINDL, WALKER RODAS Unavailable Unavailable REINDL, WALKER RODAS Unavailable Unavailable REINDL, WALKER RODAS Unavailable Unavailable REINDL, WALKER RODAS Unavailable Unavailable REINDL, WALKER RODAS Unavailable Unavailable REINDL, WALKER RODAS Unavailable Unavailable REINDL, WALKER RODAS Unavailable Unavailable REINDL, WALKER RODAS Unavailable Unavailable Vaneenenaam, James Jett MD Unavailable Unavailable Vaneenenaam, James Jett MD Unavailable Unavailable Vaneenenaam, James Jett MD Unavailable Unavailable Vaneenenaam, James Jett MD Unavailable Unavailable Vaneenenaam, James Jett MD Unavailable Unavailable Vaneenenaam, James Jett MD Unavailable Unavailable Vaneenenaam, James Jett MD Unavailable Unavailable Vaneenenaam, James Jett MD Unavailable Unavailable Vaneenenaam, James Jett MD Unavailable Unavailable Vaneenenaam, James Jett MD Unavailable Unavailable Vaneenenaam, James Jett MD Unavailable Unavailable Vaneenenaam, James Jett MD Unavailable Unavailable Vaneenenaam, James Jett MD Unavailable Unavailable Vaneenenaam, James Jett MD Unavailable Unavailable Vaneenenaam, James Jett MD Unavailable Unavailable Vaneenenaam, James Jett MD Unavailable Unavailable Vaneenenaam, James Jett MD Unavailable Unavailable Vaneenenaam, James Jett MD Unavailable Unavailable Vaneenenaam, James Jett MD Unavailable Unavailable Vaneenenaam, James Jett MD Unavailable Unavailable Vaneenamosam, James Jett MD Unavailable Unavailable Vaneenenaam, James Jett MD Unavailable Unavailable Vaneenenaam, James Jett MD Unavailable Unavailable Vaneenenaam, James Jett MD Unavailable Unavailable Vaneenenaam, James Jett MD Unavailable Unavailable Vaneenamosam, James Jett MD Unavailable Unavailable Vaneenenaam, James Jett MD Unavailable Unavailable Vaneenamosam, James Jett MD Unavailable Unavailable Vaneenenaam, James Jett MD Unavailable Unavailable Vaneenenaam, James Jett MD Unavailable Unavailable Vaneenenaam, James Jett MD Unavailable Unavailable Vaneenamosam, James Jett MD Unavailable Unavailable Vanandriaam, James Jett MD Unavailable Unavailable Vaneenenaam, James Jett MD Unavailable Unavailable Vaneenenaam, James Jett MD Unavailable Unavailable Vaneenenaam, James Jett MD Unavailable Unavailable Vaneenenaam, D Peter MD Unavailable Unavailable VaneenenaamJames MD Unavailable Unavailable VaneenenaamJames MD Unavailable Unavailable Vaneenenaam, James Jett MD Unavailable Unavailable VaneenenaamJames MD Unavailable Unavailable VaneenenaamJames MD Unavailable Unavailable Vaneenenaam, James Jett MD Unavailable Unavailable Vaneenenaam, James Jett MD Unavailable Unavailable Vaneenenaam, James Jett MD Unavailable Unavailable VaneenenaamJames MD Unavailable Unavailable Re-disclosure Warning The records that you are about to access may contain information from federally-assisted alcohol or drug abuse programs. If such information is present, then the following federally mandated warning applies: This information has been disclosed to you from records protected by federal confidentiality rules (42 CFR part 2). The federal rules prohibit you from making any further disclosure of this information unless further disclosure is expressly permitted by the written consent of the person to whom it pertains or as otherwise permitted by 42 CFR part 2. A general authorization for the release of medical or other information is NOT sufficient for this purpose. The Federal rules restrict any use of the information to criminally investigate or prosecute any alcohol or drug abuse patient.The records that you are about to access may contain highly sensitive health information, the redisclosure of which is protected by Article 27-F of the [facility] Public Health law. If you continue you may have access to information: Regarding HIV / AIDS; Provided by facilities licensed or operated by the [facility] Office of Mental Health; or Provided by the [facility] Office for People With Developmental Disabilities. If such information is present, then the following [facility] mandated warning applies: This information has been disclosed to you from confidential records which are protected by state law. State law prohibits you from making any further disclosure of this information without the specific written consent of the person to whom it pertains, or as otherwise permitted by law. Any unauthorized further disclosure in violation of state law may result in a fine or half-way sentence or both. A general authorization for the release of medical or other information is NOT sufficient authorization for further disc losure. Family History Family Member Name Family Member Gender Family Member Status Date o f Status Description Data Source(s) Unknown Unknown Problem MEDENT ([facility]) Encounters Encounter Providers Location Date Indications Data Source(s ) Outpatient [facility] [place] [address] 07/17/2021 12:00:00 AM EDT eCW1 ([facility]) Outpatient Attender: WALKER [place]/Andre bull 06/19/2021 10:40:00 AM EDT MEDENT ([facility]) OFFICE OUTPATIENT VISIT 15 MINUTES Attender: James browning MD Physical Therapy 06/17/2021 03:00:00 PM EDT MEDENT ([facility]) Outpatient Attender: James Guthrie MD Physical Therap y 05/19/2021 01:30:00 PM EDT [facility] ([facility]) [place] [address] [facility] [address] 04/23/2021 12:00:00 AM EDT eCW1 [facility]) Unknown [address] [facility] [id number] 04/10/2021 12:00:00 AM EDT eCW1 ([facility]) Outpatient [address] [facility] [address] 04/10/2021 12:00:00 AM EDT eCW1 ([facility]) Outpatient [address] [facility] [place] [address] 01/23/2021 12:00:00 AM EDT eCW1 ([facility]) Unknown [address] [facility] [place] [address] 12/10/2020 12:00:00 AM EDT eCW1 ([facility]) Outpatient Attender: Kelli strickland 10/15/2020 10:45:00 AM EST MED[facility] ([facility] ([facility]) Urology [address] [place] [address] 10/04/2020 12:00:00 AM EST eCW1 ([facility]) Unknown [address] [facility] [id number] 09/25/2020 12:00:00 AM EST eCW1 ([facility]) [place] [address] [facility] [address] 07/26/2020 12:00:00 AM EDT eCW1 ([facility]) [place] [address] [facility] [address] 07/26/2020 12:00:00 AM EDT eCW1 ([facility]) [place] [address] [facility] [address] 06/27/2020 12:00:00 AM EDT eCW1 ([facility]) Unknown [address] [facility] [address] 06/27/2020 12:00:00 AM EDT eCW1 ([facility]) Immunizations Vaccine Date Status Description Data Source(s) COVID-19 VACCINE Pfizer 07/02/2021 12:00:00 AM EDT completed [facility] Vaccine Series Complete: YESThis Data wa s Submitted to [facility] Via [employer]. COVID-19 VACC, MRNA(PFIZER)/PF 07/02/2021 12:00:00 AM EDT completed [facility] COVID-19 VACCINE Pfizer 12/06/2020 12:00:00 AM EST completed [facility] Vaccine Series Complete: YESThis Data wa s Submitted to [facility] Via [employer]. COVID-19 VACCINE Pfizer 11/15/2020 12:00:00 AM EST completed [facility] Vaccine Series Complete: NOThis Data was Submitted to [facility] Via [employer]. influenza, recombinant, quadrIvalent,injectable, prese rvative free 06/27/2020 12:03:00 PM EDT completed eCW1 ([facility]) influenza, recombinant, quadrIvalent,injectable, prese rvative free 06/27/2020 12:03:00 PM EDT completed eCW1 ([facility]) influenza, recombinant, quadrIvalent,injectable, prese rvative free 06/27/2020 12:03:00 PM EDT completed eCW1 ([facility]) influenza, recombinant, quadrIvalent,injectable, prese rvative free 06/27/2020 12:03:00 PM EDT completed eCW1 ([facility]) influenza, recombinant, quadrIvalent,injectable, prese rvative free 06/27/2020 12:03:00 PM EDT completed eCW1 ([facility]) influenza, recombinant, quadrIvalent,injectable, prese rvative free 06/27/2020 12:03:00 PM EDT completed eCW1 ([facility]) influenza, recombinant, quadrIvalent,injectable, prese rvative free 06/27/2020 12:03:00 PM EDT completed eCW1 ([facility]) influenza, recombinant, quadrIvalent,injectable, prese rvative free 06/27/2020 12:03:00 PM EDT completed eCW1 ([facility]) influenza, recombinant, quadrIvalent,injectable, prese rvative free 06/27/2020 12:03:00 PM EDT completed eCW1 ([facility]) influenza, recombinant, quadrIvalent,injectable, prese rvative free 06/27/2020 12:03:00 PM EDT completed eCW1 ([facility]) influenza, recombinant, quadrIvalent,injectable, prese rvative free 06/27/2020 12:03:00 PM EDT completed eCW1 ([facility]) influenza, recombinant, quadrIvalent,injectable, prese rvative free 06/27/2020 12:03:00 PM EDT completed eCW1 ([facility]) Medications Medication Brand Name Start Date Product Form Dose Route Admi nistrative Instructions Pharmacy Instructions Status Indications Reaction Description Data Source(s) 15 mg 07/17/2021 12:00:00 AM EDT tablet 30 TAKE ONE TABLET BY MOUTH EVERY DAY NEEDED TAKE ONE TABLET BY MOUTH EVERY DAY NEEDED SOLD: 07/27/2021 [facility] 137 mcg 06/21/2021 12:00:00 AM EDT tablet 90 TAKE ONE TABLET BY MOUTH EVERY MORNING ON AN EMPTY STOMACH TAKE ONE TABLET BY MOUTH EVERY MORNING O N AN EMPTY STOMACH SOLD: 06/24/2021 [facility] MAGNESIUM CITRATE 06/19/2021 12:00:00 AM EDT solution 296 USE FOR ADDITIONAL PREP 2-3 DAYS BEFORE PROCEDURE USE FOR ADDITIONAL PREP 2-3 DAYS BEFORE PROCEDURE SOLD: 06/24/2021 [facility] 17 gram/dose 06/19/2021 12:00:00 AM EDT powder [address] RAMIRES COLON PREPARATION INSTRUCTIONS USE DIRECTED PER DR RAMIRES COLON PREPARATION INSTRUCTIONS SOLD: 06/24/2021 [facility] POLYETHYLENE GLYCOL 3350 142 MG/ML Oral Solution [Miralax] M iralax 06/19/2021 12:00:00 AM EDT active M EDENT ([facility], ) Magnesium Hydroxide 80 MG/ML Oral Suspension Milk Of Magnesi a 06/19/2021 12:00:00 AM EDT ORAL completed MEDENT ([facility]) magnesium citrate 58.2 MG/ML Oral Solution Magnesium Citrate 06/19/2021 12:00:00 AM EDT active MEDENT ([facility]) 15 mg 06/18/2021 12:00:00 AM EDT tablet 30 TAKE ONE TABLET BY MOUTH EVERY DAY WITH FOOD OR MILK TAKE ONE TABLET BY MOUTH EVERY DAY WITH FOOD OR MILK S OLD: 06/24/2021 [facility] meloxicam 15 MG Oral Tablet [Mobic] Mobic 06/17/2021 12:00:00 AM EDT ORAL active [facility] 5 mg/gram (0.5 %) 06/16/2021 12:00:00 AM EDT ointment 3 APPLY THREE TIMES A DAY FOR 5 DAYS TO AFFECTED EYE APPLY THREE TIMES A DAY FOR 5 DAYS TO AF FECTED EYE SOLD: 06/16/2021 [facility] Ciprofloxacin 500 MG Oral Tablet [Cipro] Cipro 500 MG Cipro 500 MG 04/23/2021 12:00:00 AM EDT 1.0 {tablet} suspended Cipro 500 MG eCW1 ([facility]) Metronidazole 500 MG Oral Tablet METRONIDAZOLE 04/23/2021 12:0 0:00 AM EDT tablet 30 TAKE ONE TABLET BY MOUTH THREE T IMES A DAY TAKE ONE TABLET BY MOUTH THREE TIMES A DAY SOLD: 04/23/2021 [facility] Metronidazole 500 MG Oral Tablet metroNIDAZOLE 500 MG metroN IDAZOLE 500 MG 04/23/2021 12:00:00 AM EDT 1.0 {tablet} active metroNIDAZOLE 500 MG eCW1 ([facility]) Ciprofloxacin 500 MG Oral Tablet [Cipro] Cipro 500 MG Cipro 500 MG 04/23/2021 12:00:00 AM EDT 1.0 {tablet} active Ci pro 500 MG eCW1 ([facility]) Metronidazole 500 MG Oral Tablet metroNIDAZOLE 500 MG metroN IDAZOLE 500 MG 04/23/2021 12:00:00 AM EDT 1.0 {tablet} suspende d metroNIDAZOLE 500 MG eCW1 ([facility]) 500 mg 04/23/2021 12:00:00 AM EDT tablet 20 TAKE ONE TABLET BY MOUTH EVERY 12 HOURS TAKE ONE TABLET BY MOUTH EVERY 12 HOURS SOLD: 04/23/2021 [facility] 1 % 04/11/2021 12:00:00 AM EDT gel 100 APPLY TO KNEES THREE TIMES A DAY APPLY TO KNEES THREE TIMES A DAY SOLD: 04/23/2021 [facility] Voltaren 1 % UNK 04/10/2021 12:00:00 AM EDT activ e Voltaren 1 % eCW1 ([facility]) Diclofenac Sodium 0.01 MG/MG Topical Gel [Voltaren] Voltaren 1 % Voltaren 1 % 04/10/2021 12:00:00 AM EDT active Voltaren 1 % eCW1 ([facility]) Voltaren 1 % UNK 04/10/2021 12:00:00 AM EDT activ e Voltaren 1 % eCW1 ([facility]) Diclofenac Sodium 0.01 MG/MG Topical Gel [Voltaren] Voltaren 1 % Voltaren 1 % 04/10/2021 12:00:00 AM EDT active Voltaren 1 % eCW1 ([facility]) pantoprazole 40 MG Delayed Release Oral Tablet PANTOPRAZOLE SODIUM 01/24/2021 12:00:00 AM EDT tablet,delayed release (DR/EC) 30 T COLE ONE TABLET BY MOUTH EVERY DAY TAKE ONE TABLET BY MOUTH EVERY DAY SOLD: 01/29/2021 [facility] pantoprazole 40 MG Delayed Release Oral Tablet PANTOPRAZOLE SODIUM 01/24/2021 12:00:00 AM EDT tablet,delayed release (DR/EC) 30 T COLE ONE TABLET BY MOUTH EVERY DAY TAKE ONE TABLET BY MOUTH EVERY DAY SOLD: 07/28/2021 [facility] pantoprazole 40 MG Delayed Release Oral Tablet PANTOPRAZOLE SODIUM 01/24/2021 12:00:00 AM EDT tablet,delayed release (DR/EC) 30 T COLE ONE TABLET BY MOUTH EVERY DAY TAKE ONE TABLET BY MOUTH EVERY DAY SOLD: 06/27/2021 [facility] pantoprazole 40 MG Delayed Release Oral Tablet Pantopr azole Sodium 40 MG Pantoprazole Sodium 40 MG 01/23/2021 12:00:00 AM EDT 1.0 {tablet} active Pantoprazole Sodium 40 MG eCW1 ( [facility]) pantoprazole 40 MG Delayed Release Oral Tablet Pantopr azole Sodium 40 MG Pantoprazole Sodium 40 MG 01/23/2021 12:00:00 AM EDT 1.0 {tablet} active Pantoprazole Sodium 40 MG eCW1 ( [facility]) pantoprazole 40 MG Delayed Release Oral Tablet Pantopr azole Sodium 40 MG Pantoprazole Sodium 40 MG 01/23/2021 12:00:00 AM EDT 1.0 {tablet} active Pantoprazole Sodium 40 MG eCW1 ( [facility]) pantoprazole 40 MG Delayed Release Oral Tablet Pantopr azole Sodium 40 MG Pantoprazole Sodium 40 MG 01/23/2021 12:00:00 AM EDT 1.0 {tablet} active Pantoprazole Sodium 40 MG eCW1 ( [facility]) pantoprazole 40 MG Delayed Release Oral Tablet Pantopr azole Sodium 40 MG Pantoprazole Sodium 40 MG 01/23/2021 12:00:00 AM EDT 1.0 {tablet} active Pantoprazole Sodium 40 MG eCW1 ( [facility]) 30 ACTUAT fluticasone furoate 0.1 MG/ACT UAT / vilanterol 0.025 MG/ACTUAT Dry Powder Inhaler [Breo] 100-25 mcg/dose FLUTICASONE/VILANTEROL 01/21/2021 12:00 :00 AM EDT blister with device 60 INHALE 1 PUFF ONCE A DAY INHALE 1 PUFF ONCE A DAY SOLD: 07/08/2021 [facility] 30 ACTUAT fluticasone furoate 0.1 MG/ACT UAT / vilanterol 0.025 MG/ACTUAT Dry Powder Inhaler [Breo] 100-25 mcg/dose FLUTICASONE/VILANTEROL 01/21/2021 12:00 :00 AM EDT blister with device 60 INHALE 1 PUFF ONCE A DAY INHALE 1 PUFF ONCE A DAY SOLD: 01/29/2021 [facility] 30 ACTUAT fluticasone furoate 0.1 MG/ACT UAT / vilanterol 0.025 MG/ACTUAT Dry Powder Inhaler [Breo] 100-25 mcg/dose FLUTICASONE/VILANTEROL 01/21/2021 12:00 :00 AM EDT blister with device 60 INHALE 1 PUFF ONCE A DAY INHALE 1 PUFF ONCE A DAY SOLD: 06/10/2021 [facility] 30 ACTUAT fluticasone furoate 0.1 MG/ACT UAT / vilanterol 0.025 MG/ACTUAT Dry Powder Inhaler [Breo] 100-25 mcg/dose FLUTICASONE/VILANTEROL 01/21/2021 12:00 :00 AM EDT blister with device 60 INHALE 1 PUFF ONCE A DAY INHALE 1 PUFF ONCE A DAY SOLD: 04/25/2021 [facility] 0.5 % 10/15/2020 12:00:00 AM EST drops 5 INSTILL ONE DROP TWO TIMES A DAY INTO AFFECTED EYE(S) NEEDED FOR ALLERGY SYMPTOMS/EYE REDNESS INSTILL ONE DROP TWO TIMES A DAY INTO AFFECTED EYE(S) NEEDED FOR ALLERGY SYMPTOMS/EYE REDNESS SOLD: 10/15/2020 [facility] Polymyxin B 05602 UNT/ML / Trimethoprim 1 MG/ML Ophtha lmic Solution Polymyxin B Sulfate/Trimethoprim Sulfate 10/15/2020 12:00:00 AM EST active MEDENT ([facility]) 10,000 unit- 1 mg/mL 10/15/2020 12:00:00 AM EST drops 10 INSTILL ONE DROP FOUR TIMES A DAY INTO AFFECTED EYE DIRECTED FOR 5-7 DAYS INSTILL ONE DROP FOUR TIMES A DAY INTO AFFECTED EYE DIRECTED FOR 5-7 DAYS SOLD: 10/15/2020 [facility] Ketorolac Tromethamine 5 MG/ML Ophthalmic Solution Ketorolac Tromethamine 10/15/2020 12:00:00 AM EST active MEDENT ([facility]) 500 mg 09/23/2020 12:00:00 AM EST tablet 10 TAKE ONE TABLET BY MOUTH EVERY DAY TAKE ONE TABLET BY MOUTH EVERY DAY SOLD: 09/24/2020 [facility] 90 mcg/actuation 07/27/2020 12:00:00 AM EDT HFA aerosol inha ler 6 INHALE 2 PUFFS BY MOUTH EVERY 4 HOURS NEEDED FOR COUGH AND WHEEZING INHALE 2 PUFFS BY MOUTH EVERY 4 HOURS NEEDED FOR COUGH AND WHEEZING SOLD: 07/28/2020 [facility] 30 ACTUAT fluticasone furoate 0.1 MG/ACT UAT / vilanterol 0.025 MG/ACTUAT Dry Powder Inhaler [Breo] Breo Ellipta 100-25 MCG/INH Breo Ellipta 100-25 MCG/INH 07/26/2020 12:00:00 AM EDT 1.0 {puff} active Breo Ellipta 100-25 MCG/INH eCW1 ([facility]) 30 ACTUAT fluticasone furoate 0.1 MG/ACT UAT / vilanterol 0.025 MG/ACTUAT Dry Powder Inhaler [Breo] Breo Ellipta 100-25 MCG/INH Breo Ellipta 100-25 MCG/INH 07/26/2020 12:00:00 AM EDT 1.0 {puff} active Breo Ellipta 100-25 MCG/INH eCW1 ([facility]) 100-25 mcg/dose 07/26/2020 12:00:00 AM EDT blister with patricio ce 60 INHALE 1 PUFF BY MOUTH ONCE DAILY INHALE 1 PUFF BY MOUTH ONCE DAILY SOLD: 09/24/2020 [facility] 100-25 mcg/dose 07/26/2020 12:00:00 AM EDT blister with patricio ce 60 INHALE 1 PUFF BY MOUTH ONCE DAILY INHALE 1 PUFF BY MOUTH ONCE DAILY SOLD: 07/26/2020 [facility] 30 ACTUAT fluticasone furoate 0.1 MG/ACT UAT / vilanterol 0.025 MG/ACTUAT Dry Powder Inhaler [Breo] Breo Ellipta 100-25 MCG/INH Breo Ellipta 100-25 MCG/INH 07/26/2020 12:00:00 AM EDT 1.0 {puff} active Breo Ellipta 100-25 MCG/INH eCW1 ([facility]) 100-25 mcg/dose 07/26/2020 12:00:00 AM EDT blister with patricio ce 60 INHALE 1 PUFF BY MOUTH ONCE DAILY INHALE 1 PUFF BY MOUTH ONCE DAILY SOLD: 11/27/2020 [facility] 30 ACTUAT fluticasone furoate 0.1 MG/ACT UAT / vilanterol 0.025 MG/ACTUAT Dry Powder Inhaler [Breo] Breo Ellipta 100-25 MCG/INH Breo Ellipta 100-25 MCG/INH 07/26/2020 12:00:00 AM EDT 1.0 {puff} active Breo Ellipta 100-25 MCG/INH eCW1 ([facility]) 100-25 mcg/dose 07/26/2020 12:00:00 AM EDT blister with patricio ce 60 INHALE 1 PUFF BY MOUTH ONCE DAILY INHALE 1 PUFF BY MOUTH ONCE DAILY SOLD: 08/26/2020 [facility] 30 ACTUAT fluticasone furoate 0.1 MG/ACT UAT / vilanterol 0.025 MG/ACTUAT Dry Powder Inhaler [Breo] Breo Ellipta 100-25 MCG/INH Breo Ellipta 100-25 MCG/INH 07/26/2020 12:00:00 AM EDT 1.0 {puff} active Breo Ellipta 100-25 MCG/INH eCW1 ([facility]) 100-25 mcg/dose 07/26/2020 12:00:00 AM EDT blister with patricio ce 60 INHALE 1 PUFF BY MOUTH ONCE DAILY INHALE 1 PUFF BY MOUTH ONCE DAILY SOLD: 12/25/2020 [facility] 100-25 mcg/dose 07/26/2020 12:00:00 AM EDT blister with patricio ce 60 INHALE 1 PUFF BY MOUTH ONCE DAILY INHALE 1 PUFF BY MOUTH ONCE DAILY SOLD: 10/24/2020 [facility] 137 mcg 06/28/2020 12:00:00 AM EDT tablet 90 TAKE ONE TABLET BY MOUTH EVERY MORNING ON AN EMPTY STOMACH TAKE ONE TABLET BY MOUTH EVERY MORNING O N AN EMPTY STOMACH SOLD: 06/29/2020 [facility] 137 mcg 06/28/2020 12:00:00 AM EDT tablet 90 TAKE ONE TABLET BY MOUTH EVERY MORNING ON AN EMPTY STOMACH TAKE ONE TABLET BY MOUTH EVERY MORNING O N AN EMPTY STOMACH SOLD: 03/25/2021 [facility] 137 mcg 06/28/2020 12:00:00 AM EDT tablet 90 TAKE ONE TABLET BY MOUTH EVERY MORNING ON AN EMPTY STOMACH TAKE ONE TABLET BY MOUTH EVERY MORNING O N AN EMPTY STOMACH SOLD: 09/25/2020 [facility] 137 mcg 06/28/2020 12:00:00 AM EDT tablet 90 TAKE ONE TABLET BY MOUTH EVERY MORNING ON AN EMPTY STOMACH TAKE ONE TABLET BY MOUTH EVERY MORNING O N AN EMPTY STOMACH SOLD: 12/25/2020 [facility] Levothyroxine Sodium 0.137 MG Oral Tablet Levothyroxin e Sodium 137 MCG Levothyroxine Sodium 137 MCG 06/27/2020 12:00:00 AM EDT active Levothyroxine Sodium 137 MCG eCW1 ([facility]) Levothyroxine Sodium 0.137 MG Oral Tablet Levothyroxin e Sodium 137 MCG Levothyroxine Sodium 137 MCG 06/27/2020 12:00:00 AM EDT active Levothyroxine Sodium 137 MCG eCW1 ([facility]) Levothyroxine Sodium 0.137 MG Oral Tablet Levothyroxin e Sodium 137 MCG Levothyroxine Sodium 137 MCG 06/27/2020 12:00:00 AM EDT active Levothyroxine Sodium 137 MCG eCW1 ([facility]) Levothyroxine Sodium 0.137 MG Oral Tablet Levothyroxin e Sodium 137 MCG Levothyroxine Sodium 137 MCG 06/27/2020 12:00:00 AM EDT active Levothyroxine Sodium 137 MCG eCW1 ([facility]) Levothyroxine Sodium 0.137 MG Oral Tablet Levothyroxin e Sodium 137 MCG Levothyroxine Sodium 137 MCG 06/27/2020 12:00:00 AM EDT active Levothyroxine Sodium 137 MCG eCW1 ([facility]) Levothyroxine Sodium 0.137 MG Oral Tablet Levothyroxin e Sodium 137 MCG Levothyroxine Sodium 137 MCG 06/27/2020 12:00:00 AM EDT active Levothyroxine Sodium 137 MCG eCW1 ([facility]) Levothyroxine Sodium 0.137 MG Oral Tablet Levothyroxin e Sodium 137 MCG Levothyroxine Sodium 137 MCG 06/27/2020 12:00:00 AM EDT active Levothyroxine Sodium 137 MCG eCW1 ([facility]) Levothyroxine Sodium 0.137 MG Oral Tablet Levothyroxin e Sodium 137 MCG Levothyroxine Sodium 137 MCG 06/27/2020 12:00:00 AM EDT active Levothyroxine Sodium 137 MCG eCW1 ([facility]) Levothyroxine Sodium 0.137 MG Oral Tablet Levothyroxin e Sodium 137 MCG Levothyroxine Sodium 137 MCG 06/27/2020 12:00:00 AM EDT active Levothyroxine Sodium 137 MCG eCW1 ([facility]) Levothyroxine Sodium 0.137 MG Oral Tablet Levothyroxin e Sodium 137 MCG Levothyroxine Sodium 137 MCG 06/27/2020 12:00:00 AM EDT active Levothyroxine Sodium 137 MCG eCW1 ([facility]) Levothyroxine Sodium 0.137 MG Oral Tablet Levothyroxin e Sodium 137 MCG Levothyroxine Sodium 137 MCG 06/27/2020 12:00:00 AM EDT active Levothyroxine Sodium 137 MCG eCW1 ([facility]) Insurance Providers Payer name Policy type / Coverage type Policy ID Covered constitution party ID Covered constitution party's relationship to rojas Policy Rojas Plan Information [employer] [id number] Self [id number] POMCO [id number] Self [id number] POMCO U [id number] [facility] [id number] [facility] EXCHANGE U [id number] [facility] [id number] [facility] [id number] ANSI-Not a Secondary Insurance [id number] [facility] [id number] [facility] [id number] ANSI-Not a Secondary Insurance [id number] [facility] Commercial [id number] Self [id number] [employer] PPO [id number] SP [id number] BCBS [place] PPO [id number] SP [id number] ANSI-Not a Secondary Insurance [id number] R [facility] [id number] [facility] [id number] UMR O [id number] S [id number] UMR O [id number] S [id number] Problems, Conditions, and Diagnoses Code Display Name Description Problem Type Effective Dates Data Source(s) K57.92 [id number] Acute diverticulitis Problem 04/23/2021 12:0 0:00 AM EDT eCW1 ([facility]) M93.929 [id number] Medial epicondyle apophysitis due to ove ruse Problem 04/10/2021 12:00:00 AM EDT eCW1 ([facility]) E78.0 Hypercholesterolemia Hypercholesterolemia Problem 01/23/2021 12:00:00 AM EDT eCW1 ([facility]) J45.40 [id number] Moderate persistent asthma without compli cation Problem 01/23/2021 12:00:00 AM EDT eCW1 ([facility]) R79.89 [id number] Elevated serum creatinine Problem 01/23/2021 12:00:00 AM EDT eCW1 ([facility]) Z30.2 Sterilization procedure Sterilization Problem 12:00:00 AM EST eCW1 ([facility]) Z98.52 History of vasectomy Vasectomy status Problem 12:00:00 AM EST eCW1 ([facility]) J45.991 [id number] Asthma, cough variant Problem 07/26/2020 12: 00:00 AM EDT eCW1 ([facility]) R05 [id number] Chronic coughing Problem 06/27/2020 12:00:00 AM EDT eCW1 ([facility]) Surgeries/Procedures Procedure Description Date Indications Data Source(s) OFFICE OUTPATIENT NEW 45 MINUTES 06/19/2021 12:00:00 A M EDT MEDENT ([facility]) OFFICE OUTPATIENT VISIT 15 MINUTES 06/17/2021 12:00:00 AM EDT MEDENT ([facility]) OFFICE OUTPATIENT NEW 45 MINUTES 05/19/2021 12:00:00 A M EDT MEDENT ([facility]) Immunization: Flublok Quadrivalent (18 years & older) 0.5mL IM (Influenza) 06/27/2020 12:00:00 AM EDT eCW1 ([facility]) Results ID Date Data Source CT ABD & Pelvis w/o Contrast 04/23/2021 12:00:00 AM EDT eCW1 ([facility]) Name Value Range Interpretation Code Description Data Jaida rce(s) Supporting Document(s) CT ABD & Pelvis w/o Contrast e CW1 ([facility]) ID Date Data Source Comprehensive Metabolic Profile (CMP) 04/23/2021 12:00:00 AM EDT eCW1 ([facility]) Name Value Range Interpretation Code Description Data Jaida rce(s) Supporting Document(s) 97 70-100 GLUCOSE, FASTING eCW1 ([facility]) 17 7-18 BLOOD UREA NITROGEN eCW1 ([facility]) 55.1 >60 GLOMERULAR FILTRATION RATE eCW 1 ([facility]) 1.45 0.70-1.30 CREATININE FOR GFR eCW1 ([facility]) 106 98-107 CHLORIDE LEVEL eCW1 ([facility]) 4.5 3.5-5.1 POTASSIUM SERUM eCW1 ([facility]) 140 136-145 SODIUM LEVEL eCW1 ([facility]) 32 21-32 CARBON DIOXIDE LEVEL eCW1 ([facility]) 9.1 8.5-10.1 CALCIUM LEVEL eCW1 ([facility]) 25 7-37 AST/SGOT eCW1 ([facility]) 33 12-78 ALT/SGPT eCW1 ([facility]) 111 45-117 ALKALINE PHOSPHATASE eCW1 ([facility]) 0.9 0.2-1.0 BILIRUBIN,TOTAL eCW1 ([facility]) 7.8 6.4-8.2 TOTAL PROTEIN eCW1 ([facility]) 4.2 3.2-5.2 ALBUMIN eCW1 ([facility]) 1.2 ALBUMIN/GLOBULIN RATIO eCW1 ([facility]) ID Date Data Source CBC with Differential 04/23/2021 12:00:00 AM EDT eCW1 ([facility]) Name Value Range Interpretation Code Description Data Jaida rce(s) Supporting Document(s) 11.9 4.0-10.0 WHITE BLOOD COUNT eCW1 ([facility]) 5.83 4.30-6.10 RED BLOOD COUNT eCW1 ([facility]) 50.9 42.0-52.0 HEMATOCRIT eCW1 ([facility]) 16.9 13.5-17.5 HEMOGLOBIN eCW1 ([facility]) 29.0 27.0-33.0 MEAN CORPUSCULAR HEMOGLOB IN eCW1 ([facility]) 33.2 32.0-36.5 MEAN CORPUSCULAR HGB CONC eCW1 ([facility]) 87.3 80.0-96.0 MEAN CORPUSCULAR VOLUME e CW1 ([facility]) 76.2 36.0-66.0 NEUTROPHILS % eCW1 ([facility]) 12.6 11.5-14.5 RED CELL DISTRIBUTION WID TH eCW1 ([facility]) 294 150-450 PLATELET COUNT, AUTOMATED eCW1 ([facility]) 0.2 0.0-3.0 EOS % eCW1 ([facility]) 9.2 2.0-8.0 MONO % eCW1 ([facility]) 13.7 24.0-44.0 LYMPH % eCW1 ([facility]) 9.1 1.5-8.5 NEUTROPHILS # eCW1 ([facility]) 0.3 0.0-1.0 BASO % eCW1 ([facility]) 1.6 1.5-5.0 LYMPH # eCW1 ([facility]) 1.1 0.0-0.8 MONO # eCW1 ([facility]) 0.0 0.0-0.5 EOS # eCW1 ([facility]) 0.0 0.0-0.2 BASO # eCW1 ([facility]) ID Date Data Source ADM ELBOW COMPLETE 04/10/2021 12:00:00 AM EDT eCW1 ([facility]) Name Value Range Interpretation Code Description Data Jaida rce(s) Supporting Document(s) ADM ELBOW COMPLETE eCW1 ([facility]) ID Date Data Source LIPID PANEL (CARDIAC RISK) 01/23/2021 12:00:00 AM EDT eCW1 ( [facility]) Name Value Range Interpretation Code Description Data Jaida rce(s) Supporting Document(s) Cholesterol [Moles/volume] in Serum or Plasma 188 <200 CHOLESTEROL LEVEL eCW1 ([facility]) Triglyceride [Mass/volume] in Serum or Plasma by calculation 206 <150 TRIGLYCERIDES LEVEL eCW1 ([facility]) Cholesterol in HDL [Moles/volume] in Serum or Plasma 25 >40 HDL CHOLESTEROL eCW1 ([facility]) Cholesterol in LDL [Mass/volume] in Serum or Plasma by calculation 122 <100 LDL CHOLESTEROL eC1 ([facility]) 7.520 <5 CHOLESTEROL RISK RATIO eCW ([facility]) 163 NON-HDL-C [facility] ([facility]) ID Date Data Source FREE T4 & TSH PANEL 01/23/2021 12:00:00 AM EDT [facility] ([facility]) Name Value Range Interpretation Code Description Data Jaida rce(s) Supporting Document(s) 0.393 0.358-3.740 THYROID STIMULATING HORM ONE eCW1 ([facility]) 1.28 0.76-1.46 FREE T4 eCW1 ([facility]) ID Date Data Source LIPASE 01/23/2021 12:00:00 AM EDT eCW1 ([facility]) Name Value Range Interpretation Code Description Data Jaida rce(s) Supporting Document(s) 190 73-393 LIPASE eCW1 ([facility]) ID Date Data Source [id number] 01/23/2021 12:00:00 AM EDT eCW1 ([facility]) Name Value Range Interpretation Code Description Data Jaida rce(s) Supporting Document(s) Hemoglobin A1c/Hemoglobin.total in Blood 5.2 HEMOGLOBIN A1c eCW1 ([facility]) ID Date Data Source CBC - Complete Blood Count 01/23/2021 12:00:00 AM EDT eCW1 ( [facility]) Name Value Range Interpretation Code Description Data Jaida rce(s) Supporting Document(s) 6.9 4.0-10.0 WHITE BLOOD COUNT eCW1 ([facility]) 5.68 4.30-6.10 RED BLOOD COUNT eCW1 ([facility]) 88.4 80.0-96.0 MEAN CORPUSCULAR VOLUME e CW1 ([facility]) 16.7 13.5-17.5 HEMOGLOBIN eCW1 ([facility]) 50.2 42.0-52.0 HEMATOCRIT eCW1 ([facility]) 33.3 32.0-36.5 MEAN CORPUSCULAR HGB CONC eCW1 ([facility]) 29.4 27.0-33.0 MEAN CORPUSCULAR HEMOGLOB IN eCW1 ([facility]) 280 150-450 PLATELET COUNT, AUTOMATED eCW1 ([facility]) 12.1 11.5-14.5 RED CELL DISTRIBUTION WID TH eCW1 ([facility]) ID Date Data Source AMYLASE 01/23/2021 12:00:00 AM EDT eCW1 ([facility]) Name Value Range Interpretation Code Description Data Jaida rce(s) Supporting Document(s) 81 [id number] AMYLASE eCW1 ([facility]) ID Date Data Source 492 09/23/2020 12:00:00 AM EST [facility] Name Value Range Interpretation Code Description Data Jaida rce(s) Supporting Document(s) SARS-CoV2 Rapid Antigen [facility] This lab was ordered by [facility] and reported by [facility]. ID Date Data Source ADM CHEST 2 VIEW 07/04/2020 06:44:35 AM EDT eCW1 ([facility]) Name Value Range Interpretation Code Description Data Jaida rce(s) Supporting Document(s) eCW1 ([facility]) ID Date Data Source PSA SCREENING 06/27/2020 03:08:38 AM EDT eCW1 ([facility]) Name Value Range Interpretation Code Description Data Jaida rce(s) Supporting Document(s) 2.49 PSA SCREENING eCW1 ([facility]) Procedure Social History Code Duration Value Status Description Data Source(s ) Smoking 07/17/2021 12:00:00 AM EDT Never Smoker completed Never S moker eCW1 ([facility]) Smoking 04/23/2021 12:00:00 AM EDT Never Smoker completed Never S moker eCW1 ([facility]) Smoking 04/10/2021 12:00:00 AM EDT Never Smoker completed Never S moker eCW1 ([facility]) Smoking 04/10/2021 12:00:00 AM EDT Never Smoker completed Never S moker eCW1 ([facility]) Smoking 01/23/2021 12:00:00 AM EDT Never Smoker completed Never S moker eCW1 ([facility]) Smoking 10/04/2020 12:00:00 AM EST Never Smoker completed Never S moker eCW1 ([facility]) Smoking 10/04/2020 12:00:00 AM EST Never Smoker completed Never S moker eCW1 ([facility]) Smoking 07/26/2020 12:00:00 AM EDT Never Smoker completed Never S moker eCW1 ([facility]) Smoking 07/26/2020 12:00:00 AM EDT Never Smoker completed Never S moker eCW1 ([facility]) Smoking 07/26/2020 12:00:00 AM EDT Never Smoker completed Never S moker eCW1 ([facility]) Smoking 06/27/2020 12:00:00 AM EDT Never Smoker completed Never S moker eCW1 ([facility]) Smoking 06/27/2020 12:00:00 AM EDT Never Smoker completed Never S moker eCW1 ([facility]) Vital Signs ID Date Data Source UNK Name Value Range Interpretation Code Description Data Source(s) Body weight 195 [lb_av] 195 [lb_av] eCW1 ([facility]) Body height 69 [in_i] 69 [in_i] eCW1 ([facility]) Body mass index (BMI) [Ratio] 28.79 kg/m2 28.79 kg/m2 eCW1 ([facility]) Heart rate 58 /min 58 /min eCW1 ([facility]) Respiratory rate 18 /min 18 /min eCW1 ([facility] by [facility]) Body temperature 97.6 [degF] 97.6 [degF] eCW1 ( [facility]) Systolic blood pressure 122 mm[Hg] 122 mm[Hg] e CW1 ([facility]) Diastolic blood pressure 72 mm[Hg] 72 mm[Hg] eCW1 ([facility]) Systolic blood pressure 119 mm[Hg] 119 mm[Hg] M EDENT ([facility], ) Diastolic blood pressure 85 mm[Hg] 85 mm[Hg] MEDENT ([facility], ) Body height 69 [in_i] 69 [in_i] MEDENT ([facility], ) 5'9" Body weight 190.00 [lb_av] 190.00 [lb_av] MEDEN T ([facility], ) Body mass index (BMI) [Ratio] 28.1 kg/m2 28.1 k g/m2 MEDENT ([facility], ) Voss body weight 160 [lb_av] 160 [lb_av] MEDEN T ([facility], ) Body weight 86.184 kg 86.184 kg [facility] Body surface area Derived from formula 2.02 m2 2.02 m2 [facility] ([facility]) Body mass index (BMI) [Ratio] 29.5 kg/m2 29.5 k g/m2 MEDENT ([facility]) Body temperature 97.5 [degF] 97.5 [degF] MEDENT ([facility]) Body height 68 [in_i] 68 [in_i] MEDENT ([facility]) 5'8" Body weight 194.00 [lb_av] 194.00 [lb_av] MEDEN T ([facility]) Body weight 197 [lb_av] 197 [lb_av] eCW1 ([facility]) Body height 69 [in_i] 69 [in_i] eCW1 ([facility]) Body mass index (BMI) [Ratio] 29.09 kg/m2 29.09 kg/m2 W1 ([facility]) Heart rate 93 /min 93 /min eCW1 ([facility]) Respiratory rate 18 /min 18 /min eCW1 ([facility]placed by [facility]) Body temperature 97.6 [degF] 97.6 [degF] eCW1 ( [facility]) Systolic blood pressure 120 mm[Hg] 120 mm[Hg] e CW1 ([facility]) Diastolic blood pressure 72 mm[Hg] 72 mm[Hg] eCW1 ([facility]) Body weight 200 [lb_av] 200 [lb_av] eCW1 ([facility]) Body height 69 [in_i] 69 [in_i] eCW1 ([facility]) Body mass index (BMI) [Ratio] 29.53 kg/m2 29.53 kg/m2 W1 ([facility]) Heart rate 72 /min 72 /min eCW1 ([facility]) Respiratory rate 18 /min 18 /min eCW1 ([facility]placed by [facility]) Body temperature 98.1 [degF] 98.1 [degF] eCW1 ( [facility]) Systolic blood pressure 124 mm[Hg] 124 mm[Hg] e CW1 ([facility]) Diastolic blood pressure 72 mm[Hg] 72 mm[Hg] eCW1 ([facility]) Body weight 198 [lb_av] 198 [lb_av] eCW1 ([facility]) Body height 69 [in_i] 69 [in_i] eCW1 ([facility]) Body mass index (BMI) [Ratio] 29.24 kg/m2 29.24 kg/m2 eCW1 ([facility]) Heart rate 74 /min 74 /min eCW1 ([facility]) Respiratory rate 18 /min 18 /min eCW1 ([facility]placed [facility]) Body temperature 96.8 [degF] 96.8 [degF] eCW1 ( [facility]) Systolic blood pressure 122 mm[Hg] 122 mm[Hg] e CW1 ([facility]) Diastolic blood pressure 68 mm[Hg] 68 mm[Hg] eCW1 ([facility]) Systolic blood pressure 116 mm[Hg] 116 mm[Hg] M EDENT ([facility]) Diastolic blood pressure 78 mm[Hg] 78 mm[Hg] MEDENT ([facility], [facility]) Heart rate 59 /min 59 /min MEDENT ([facility], [facility]) Respiratory rate 16 /min 16 /min MEDENT ( [facility] [place]) Oxygen saturation in Arterial blood by Pulse oximetry 99 % 99 % MEDENT ([facility] [place]) Body temperature 98.7 [degF] 98.7 [degF] MEDENT ([facility], [facility]) Body weight 175.00 [lb_av] 175.00 [lb_av] MEDEN T ([facility], [facility]) Body height 69 [in_i] 69 [in_i] MEDENT ([facility] [place]) 5'9" Body mass index (BMI) [Ratio] 25.8 kg/m2 25.8 k g/m2 MEDENT ([facility] [place]) Body weight 200 [lb_av] 200 [lb_av] eCW1 ([facility]) Body height 69 [in_i] 69 [in_i] eCW1 ([facility]) Body mass index (BMI) [Ratio] 29.53 kg/m2 29.53 kg/m2 eCW1 ([facility]) Heart rate 48 /min 48 /min eCW1 ([facility]) Respiratory rate 18 /min 18 /min eCW1 (Replaced by [facility]) Body temperature 97.1 [degF] 97.1 [degF] eCW1 ( [facility]) Systolic blood pressure 124 mm[Hg] 124 mm[Hg] e CW1 ([facility]) Diastolic blood pressure 78 mm[Hg] 78 mm[Hg] eCW1 ([facility]) Body weight 198 [lb_av] 198 [lb_av] eCW1 ([facility]) Body height 69 [in_i] 69 [in_i] eCW1 ([facility]) Body mass index (BMI) [Ratio] 29.24 kg/m2 29.24 kg/m2 eCW1 ([facility]) Heart rate 75 /min 75 /min eCW1 ([facility]) Respiratory rate 18 /min 18 /min eCW1 ([facility]placed by [facility]) Body temperature 97.1 [degF] 97.1 [degF] eCW1 ( [facility]) Systolic blood pressure 122 mm[Hg] 122 mm[Hg] e CW1 ([facility]) Diastolic blood pressure 70 mm[Hg] 70 mm[Hg] eCW1 ([facility]) Body weight 197 [lb_av] 197 [lb_av] eCW1 ([facility]) Body height 69 [in_i] 69 [in_i] eCW1 ([facility]) Body mass index (BMI) [Ratio] 29.09 kg/m2 29.09 kg/m2 eCW1 ([facility]) Heart rate 50 /min 50 /min eCW1 ([facility]) Respiratory rate 18 /min 18 /min eCW1 ([facility]placed by [facility]) Body temperature 96.4 [degF] 96.4 [degF] eCW1 ( [facility]) Systolic blood pressure 108 mm[Hg] 108 mm[Hg] e CW1 ([facility]) Diastolic blood pressure 76 mm[Hg] 76 mm[Hg] eCW1 ([facility]) Body weight 195 [lb_av] 195 [lb_av] eCW1 ([facility]) Body height 69 [in_i] 69 [in_i] eCW1 ([facility]) Body mass index (BMI) [Ratio] 28.79 kg/m2 28.79 kg/m2 eCW1 ([facility]) Heart rate 53 /min 53 /min eCW1 ([facility]) Respiratory rate 18 /min 18 /min eCW1 ([facility]placed by [facility]) Body temperature 96.1 [degF] 96.1 [degF] eCW1 ( [facility]) Systolic blood pressure 128 mm[Hg] 128 mm[Hg] e CW1 ([facility]) Diastolic blood pressure 70 mm[Hg] 70 mm[Hg] eCW1 ([facility]) Patient Treatment Plan of Care Planned Activity Planned Date Details Description Data Source (s) Ciprofloxacin 500 MG Oral Tablet [Cipro] 04/23/2021 12:00:00 AM EDT eCW1 ([facility]) Metronidazole 500 MG Oral Tablet 04/23/2021 12:00:00 AM EDT eCW1 ([facility]) Voltaren 1 % 04/10/2021 12:00:00 AM EDT e CW1 ([facility]) Voltaren 1 % 04/10/2021 12:00:00 AM EDT e CW1 ([facility]) pantoprazole 40 MG Delayed Release Oral Tablet 01/23/2021 12:00:00 AM EDT eCW1 ([facility]) 30 ACTUAT fluticasone furoate 0.1 MG/ACT UAT / vilanterol 0.025 MG/ACTUAT Dry Powder Inhaler [Breo] 07/26/2020 12:00:00 AM EDT eCW1 ([facility]) 30 ACTUAT fluticasone furoate 0.1 MG/ACT UAT / vilanterol 0.025 MG/ACTUAT Dry Powder Inhaler [Breo] 07/26/2020 12:00:00 AM EDT eCW1 ([facility]) 30 ACTUAT fluticasone furoate 0.1 MG/ACT UAT / vilanterol 0.025 MG/ACTUAT Dry Powder Inhaler [Breo] 07/26/2020 12:00:00 AM EDT eCW1 ([facility]) Levothyroxine Sodium 0.137 MG Oral Tablet 06/27/2020 12:00:00 AM ED T eCW1 ([facility]) Levothyroxine Sodium 0.137 MG Oral Tablet 06/27/2020 12:00:00 AM ED T eCW1 ([facility])
--- OUTSIDE RECORDS SUMMARY | 2021-08-05 09:50 | CCD ---
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 I think his blood shot eyes may relate to allergic conjunctivitis and Flonase may help this. Problem Bilateral knee pain M25.561 Active confirmed 12535680 Problem Hypothyroidism E03.9 Active confirmed 69751 008 Hypothyroidism since Summer 2009, at which time his TSH was 377. Has a family history of thyroid disease. On replacement. Problem Primary insomnia F51.01 Active confirmed 397 2004 Problem Functional diarrhea K59.1 Active confirmed 02931468 Problem Vitamin D deficiency E55.9 Active confirmed 85923163 Problem Screening for prostate cancer Z12.5 Active confirm ed 495429390 Problem Moderate persistent asthmatic bronchitis with ac anny exacerbation J45.41 Active confirmed 175433919285841 Problem Degenerative disc disease, lumbar M51.36 Active confirmed 69307483 Problem Seborrheic keratoses L82.1 Active confirmed 641290964 Problem Melanocytic nevi of trunk D22.5 Active confirmed 181542238 Problem Chronic diarrhea K52.9 Active confirmed 236 385547 Problem Actinic keratosis L57.0 Active confirmed 20 6562486 Problem Sprain of low back, initial encounter S33.5XXA A ctive confirmed 854189100 Problem Dyslipidemia E78.5 Active confirmed 7989777 07 Problem Degeneration, intervertebral disc, lumbosacral M51 .37 Active confirmed 97797964 Problem Maxillary sinusitis, unspecified chronicity J32.0 Active confirmed 61489221 Problem Chronic coughing R05 Active confirmed 681 99453 Problem Vasectomy status Z98.52 Active confirmed 161 186603 Problem Sterilization Z30.2 Active confirmed 638612 006 Problem Acute diverticulitis K57.92 Active confirmed 432004319 Problem Melanocytic nevi of left upper limb, including shoulder D22.62 Active confirmed 375410904 Problem Medial epicondyle apophysitis due to overuse M93.9 29 Active confirmed 5554509194833 Problem Prediabetes R73.03 Active confirmed 01739854 2 Problem Melanocytic nevi of right upper limb, including shoulder D22.61 Active confirmed 883072224 Problem Asthma, cough variant J45.991 Active confirmed 017814916 Problem Elevated serum creatinine R79.89 Active confirmed 482814510 elevated creatinine reflects heavily muscled frame, not CKD Problem Moderate persistent asthma without complication J4 5.40 Active confirmed 874261189 Problem Hypercholesterolemia E78.0 Active confirmed 95810034 ALLERGIES Allergen (clinical drug ingredient) Drug/Non Drug Allergy do cumented on EMR Reaction Allergy Type Onset Date Status Penicillin (For Allergies Use Only) Hives Drug Allerg y Active ENCOUNTERS from 1970 to 2021-05-08 Encounter Location Date Provider Diagnosis [facility] [address] [place] [address] Mar, Yves Juarez Acute diverticulitis K57.92 IMMUNIZATIONS Vaccine Route Administration Date Status Influenza [...] Education Language: Question Answer Notes Languages spoken: Burmese Baptism: Question Answer Notes Baptism No sabianism beliefs that would impact health care. Sexual [...] FOR REFERRAL No Information VITAL SIGNS Weight 197 lbs Mar, Height 69 in Mar, BMI 29.09 kg/m2 Mar, Heart Rate 93 /min Mar, Respiratory Rate 18 /min Mar, Temperature 97.6 degrees Fahrenheit Mar, Oximetry 95 Mar, Blood pressure systolic 120 mm Hg Mar, Blood pressure diastolic 72 mm Hg Mar, MEDICATIONS Medication SIG (Take, Route, Frequency, Duration) Notes Start Da te End Date Status metroNIDAZOLE 500 MG 1 tablet Orally Three times a day for 10 da y(s) Mar, Active Proventil HFA 108 (90 Base) MCG/ACT 2 puffs as needed Inhalation every 4 hrs for cough/wheezing for 30 Days Activ e Meloxicam 15 MG 1 tablet Orally once daily as needed for 30 day( s) Aug, Not-Taking Voltaren 1 % to knees Externally three times daily for 30 Days Mar, Active Levothyroxine Sodium 137 MCG 1 tablet in the morning o n an empty stomach Orally Once a day for 90 day(s) Jun, Active Breo Ellipta 100-25 MCG/INH 1 puff Inhalation Once a day for 30 Active tiZANidine HCl 4 MG 1 tablet as needed Orally th ree times daily as needed for 5 day(s) Aug, Not-Taking Pantoprazole Sodium 40 MG 1 tablet Orally Once a day for 30 day( s) Dec, Active Cipro 500 MG 1 tablet Orally every 12 hrs for 10 day(s) Mar, Active PROCEDURES No Information RESULTS Component Value Reference Range CBC with Differential Reviewed date:04/23/2021 15:16:28 Interpretation: Performing Lab:Count includes the [facility] LABOR[facility] [address] [id number] , ,[place] [address] WHITE BLOOD COUNT 11.9 4.0-10.0 RED BLOOD COUNT 5.83 4.30-6.10 HEMOGLOBIN 16.9 13.5-17.5 HEMATOCRIT 50.9 42.0-52.0 MEAN CORPUSCULAR VOLUME 87.3 80.0-96.0 MEAN CORPUSCULAR HEMOGLOBIN 29.0 27.0-33.0 MEAN CORPUSCULAR HGB CONC 33.2 32.0-36.5 RED CELL DISTRIBUTION WIDTH 12.6 11.5-14.5 PLATELET COUNT, AUTOMATED 294 150-450 NEUTROPHILS % 76.2 36.0-66.0 LYMPH % 13.7 24.0-44.0 MONO % 9.2 2.0-8.0 EOS % 0.2 0.0-3.0 BASO % 0.3 0.0-1.0 NEUTROPHILS # 9.1 1.5-8.5 LYMPH # 1.6 1.5-5.0 MONO # 1.1 0.0-0.8 EOS # 0.0 0.0-0.5 BASO # 0.0 0.0-0.2 Comprehensive Metabolic Profile (CMP) Reviewed date:04/23/2021 15:16:28 Interpretation: Performing Lab:Count includes the [facility] LABOR[facility] [address] [address] , ,[place] [address] GLUCOSE, FASTING 97 70-100 BLOOD UREA NITROGEN 17 7-18 CREATININE FOR GFR 1.45 0.70-1.30 GLOMERULAR FILTRATION RATE 55.1 >60 SODIUM LEVEL 140 136-145 POTASSIUM SERUM 4.5 3.5-5.1 CHLORIDE LEVEL 106 98-107 CARBON DIOXIDE LEVEL 32 21-32 CALCIUM LEVEL 9.1 8.5-10.1 AST/SGOT 25 7-37 ALT/SGPT 33 12-78 ALKALINE PHOSPHATASE 111 45-117 BILIRUBIN,TOTAL 0.9 0.2-1.0 TOTAL PROTEIN 7.8 6.4-8.2 ALBUMIN 4.2 3.2-5.2 ALBUMIN/GLOBULIN RATIO 1.2 CT ABD & Pelvis w/o Contrast Reviewed date:04/23/2021 15:16:28 Interpretation: Performing Lab:[facility],[address]], ,[place] [address] REASON FOR VISIT 3 month follow up, pt is having a pain on the top part of his groin area.x 1 day MEDICAL (GENERAL) HISTORY Type Description Date Medical History hypothyroidism Medical History hyperlipidemia/low HDL Medical History allergies Medical History mild BPH Medical History early repolarization on EKG Medical History prediabetes 11/14 Medical History asthma, cough variant--+ methacholine ch allenge 07/16 Medical History (baseline creatinine ~ 1.3-1 .5--reflects heavilymuscled frame, not CKD) Surgical History Laparascopic cholecystectomy 07/2002 Surgical History LASIK Eye Surgery 07/[address] Tate removed mole from back-biopsy negative 07/2015 Surgical History vasectomy 10/17 Goals Section No Information Health Concerns No Information MEDICAL EQUIPMENT No Information MENTAL STATUS No Information FUNCTIONAL STATUS No Information ASSESSMENTS Encounter Date Diagnosis Assessment Notes Treatment Notes Treatm ent Clinical Notes Mar, Acute diverticulitis (ICD-10 - K57.92) [email or web address]://[email or web address]-lifestyle/spzcoovvv-vpk-vzbavqo-eating/in-dep /diverticulitis-diet/[email or web address]?[email or web address] PLAN OF TREATMENT Medication Medication Name Sig Start Date Stop Date Cipro 500 MG 1 tablet Orally every 12 hrs for 10 day(s) 2020 metroNIDAZOLE 500 MG 1 tablet Orally Three times a day for 1 0 day(s) Mar, Treatment Notes Assessment Notes Clinical Notes Acute diverticulitis [email or web address]://www.[facility].org/healthy-lifestyle/ibhmvrkgk-qrw-fzwjixr-eating/in-dep /diverticulitis-diet/art-[email or web address]?[email or web address].org/afp//[email or web address].pdf Next Appt Details 3 Months Reason: Provider Name:Yves Juarez, 2021-06 08:00:00 AM, [address], , [place], [address], Insurance Providers Payer Name Payer Address Payer Phone Insured Name Patient Relati onship to Insured Coverage Start Date Coverage End Date [facility] [address] [address] [facility] [id number] Crista Sanchez
[2021-08-05] MEDS ORDERED: fentaNYL 100 MCG/2 ML INJECTION (J3010) As Ordered ONE (11:02)
[2021-08-05] MEDS ORDERED: propofoL 200 MG/20 ML VIAL As Ordered ONE ×2 (11:02→11:03)
[2021-08-05] MEDS ORDERED: LIDOCAINE 2% 100MG/5ML SDV (FOR ANES.) As Ordered ONE (11:03)
--- NOTE | 2021-08-05 11:38 | ROOR ---
Patient Name: Harish Sanchez Procedure Date: 08/05/2021 11:24 AM Date of : 1970 Age: 51 Room: [facility] Gender: Male Note Status: Finalized Procedure: Upper GI endoscopy Indications: Heartburn Providers: Braxton Corona MD Referring MD: Yves Juarez MD Requesting Provider: Medicines: Monitored Anesthesia Care Complications: No immediate complications. Procedure: Pre-Anesthesia Assessment: - The heart rate, respiratory rate, oxygen saturations, blood pressure, adequacy of pulmonary ventilation, and response to care were monitored throughout the procedure. The Endoscope was introduced through the mouth, and advanced to the second part of duodenum. The upper GI endoscopy was accomplished without difficulty. The patient tolerated the procedure well. Findings: The Z-line was variable and was found 38 cm from the incisors. Biopsies were taken with a cold forceps for histology. Very small (insignificant) Hiatal Hernia. The exam was otherwise without abnormality. Impression: - Z-line variable, 38 cm from the incisors. Biopsied. - Very small (insignificant) Hiatal Hernia. - The examination was otherwise normal. Recommendation: - Follow an antireflux regimen. - Continue present medications. - Telephone endoscopist for pathology results in 2 weeks. Procedure Code(s): --- Professional --- 02393, Esophagogastroduodenoscopy, flexible, transoral; with biopsy, single or multiple Diagnosis Code(s): --- Professional --- R12, Heartburn K22.8, Other specified diseases of esophagus CPT copyright 2019 [employer]. All rights reserved. The codes documented in this report are preliminary and upon clinical psychologist review may be revised to meet current compliance requirements. Braxton Corona MD Braxton Corona MD 08/05/2021 11:37:59 AM Electronically signed by Braxton Corona MD Number of Addenda: 0 Note Initiated On: 08/05/2021 11:24 AM Estimated Blood Loss: Estimated blood loss: none.
--- NOTE | 2021-08-05 11:55 | ROOR ---
Patient Name: Harish Sanchez Procedure Date: 08/05/2021 11:26 AM Date of : 1970 Age: 51 Room: [facility] Gender: Male Note Status: Finalized Procedure: Colonoscopy Indications: Abnormal CT of the GI tract Providers: Braxton Corona MD Referring MD: Yves Juarez MD Requesting Provider: Medicines: Monitored Anesthesia Care Complications: No immediate complications. Procedure: Pre-Anesthesia Assessment: - The heart rate, respiratory rate, oxygen saturations, blood pressure, adequacy of pulmonary ventilation, and response to care were monitored throughout the procedure. The Colonoscope was introduced through the anus and advanced to the terminal ileum, with identification of the appendiceal orifice and IC valve. The colonoscopy was performed without difficulty. The patient tolerated the procedure well. The quality of the bowel preparation was adequate. Findings: The perianal and digital rectal examinations were normal. Mild sigmoid diverticulosis and small internal hemorrhoids. The exam was otherwise without abnormality on direct and retroflexion views. Impression: - Mild sigmoid diverticulosis and small internal hemorrhoids. - The examination was otherwise normal on direct and retroflexion views. - No specimens collected. Recommendation: - Repeat colonoscopy in 10 years for screening purposes. Procedure Code(s): --- Professional --- 42396, Colonoscopy, flexible; diagnostic, including collection of specimen(s) by brushing or washing, when performed (separate procedure) Diagnosis Code(s): --- Professional --- R93.3, Abnormal findings on diagnostic imaging of other parts of digestive tract CPT copyright 2019 [employer]. All rights reserved. The codes documented in this report are preliminary and upon clinical coder review may be revised to meet current compliance requirements. Braxton Corona MD Braxton Corona MD 08/05/2021 11:54:47 AM Electronically signed by Braxton Corona MD Number of Addenda: 0 Note Initiated On: 08/05/2021 11:26 AM Estimated Blood Loss: Estimated blood loss: none.
[2021-08-05 12:16] VITALS: BP 128/61
== END 2021-08-05 12:25 | disposition home or self-care (01) ==
LOC: M OPP 09:46
PROVIDERS: ATTEND Internal Medicine Gastroenterology
DX: K21.9 Gastro-esophageal reflux disease without esophagitis (principal); K22.89 Other specified disease of esophagus; K57.30 Diverticulosis of large intestine without perforation or abscess without bleeding; K64.8 Other hemorrhoids
CPT/HCPCS: 43239; 45378; 88305; J3010

== ENCOUNTER → 2022-03-04 | Outpatient (REF) | payer OTHER ==
[~2022-03-04] MED LIST changes: -NS 1,000 ML IV ONE
[2022-03-04 16:26] LABS: HEMATOCRIT 47.8 % (42.0-52.0); HEMOGLOBIN 15.6 g/dl (13.5-17.5); MEAN CORPUSCULAR HEMOGLOBIN 28.8 pg (27.0-33.0); MEAN CORPUSCULAR HGB CONC 32.6 g/dl (32.0-36.5); MEAN CORPUSCULAR VOLUME 88.4 fl (80.0-96.0); PLATELET COUNT, AUTOMATED 257 10^3/uL (150-450); RED BLOOD COUNT 5.41 10^6/uL (4.30-6.10); WHITE BLOOD COUNT 5.3 10^3/uL (4.0-10.0)
[2022-03-04 16:52] LABS: ALBUMIN 4.1 GM/DL (3.2-5.2); ALT/SGPT 48 U/L (12-78); BILIRUBIN,TOTAL 0.6 MG/DL (0.2-1.0); BLOOD UREA NITROGEN 21 MG/DL (7-18); CALCIUM LEVEL 9.1 MG/DL (8.5-10.1); CARBON DIOXIDE LEVEL 29 MEQ/L (21-32); CHLORIDE LEVEL 107 MEQ/L (98-107); CHOLESTEROL LEVEL 201 MG/DL (<200); CHOLESTEROL RISK RATIO 7.178 (<5); CREATININE FOR GFR 1.19 MG/DL (0.70-1.30); FREE T4 1.21 NG/DL (0.76-1.46); GLOMERULAR FILTRATION RATE > 60.0 (>60); GLUCOSE, FASTING 82 MG/DL (70-100); HDL CHOLESTEROL 28 MG/DL (>40); LDL CHOLESTEROL 142 MG/DL (<100); NON-HDL-C 173 MG/DL; POTASSIUM SERUM 4.3 MEQ/L (3.5-5.1); SODIUM LEVEL 141 MEQ/L (136-145); THYROID STIMULATING HORMONE 0.731 uIU/ML (0.358-3.740); TOTAL PROTEIN 7.4 GM/DL (6.4-8.2); TRIGLYCERIDES LEVEL 153 MG/DL (<150)
[2022-03-04 17:06] LABS: HEMOGLOBIN A1c 5.8 %
== END ==
LOC: M SFHCADAM 12:05
PROVIDERS: ATTEND Family Medicine
DX: E03.9 Hypothyroidism, unspecified (principal); E78.5 Hyperlipidemia, unspecified; R73.03 Prediabetes; J45.991 Cough variant asthma

== ENCOUNTER → 2022-09-29 | Outpatient (REF) | payer OTHER ==
[2022-09-29 13:04] LABS: HEMATOCRIT 47.4 % (42.0-52.0); HEMOGLOBIN 15.5 g/dl (13.5-17.5); MEAN CORPUSCULAR HEMOGLOBIN 28.9 pg (27.0-33.0); MEAN CORPUSCULAR HGB CONC 32.7 g/dl (32.0-36.5); MEAN CORPUSCULAR VOLUME 88.4 fl (80.0-96.0); PLATELET COUNT, AUTOMATED 251 10^3/uL (150-450); RED BLOOD COUNT 5.36 10^6/uL (4.30-6.10); WHITE BLOOD COUNT 6.2 10^3/uL (4.0-10.0)
[2022-09-29 13:31] LABS: HEMOGLOBIN A1c 5.3 % (4.0-6.0)
[2022-09-29 13:45] LABS: FREE T4 1.21 NG/DL (0.89-1.76); THYROID STIMULATING HORMONE 0.696 uIU/ML (0.55-4.78)
[2022-09-29 13:46] LABS: ALBUMIN 3.9 G/DL (3.2-5.2); ALKALINE PHOSPHATASE 100 U/L (46-116); ALT/SGPT 31 U/L (7.0-40); AST/SGOT 31 U/L (<34); BILIRUBIN,TOTAL 0.5 MG/DL (0.3-1.2); BLOOD UREA NITROGEN 21 MG/DL (9-23); CARBON DIOXIDE LEVEL 26 MMOL/L (20-31); CHLORIDE LEVEL 102 MMOL/L (98-107); CHOLESTEROL LEVEL 200 MG/DL (<200); CHOLESTEROL RISK RATIO 6.26 (<5); CREATININE FOR GFR 1.19 MG/DL (0.70-1.30); GLOMERULAR FILTRATION RATE > 60.0 (>56); GLUCOSE, FASTING 100 MG/DL (60-100); HDL CHOLESTEROL 31.9 MG/DL (>40); LDL CHOLESTEROL 101.1 MG/DL (<100); NON-HDL-C 168 MG/DL; POTASSIUM SERUM 4.9 MMOL/L (3.5-5.1); SODIUM LEVEL 139 MMOL/L (136-145); TOTAL PROTEIN 6.9 G/DL (5.7-8.2); TRIGLYCERIDES LEVEL 335 MG/DL (<150)
== END ==
LOC: M SFHCADAM 08:58
PROVIDERS: ATTEND Family Medicine
DX: E03.9 Hypothyroidism, unspecified (principal); E78.5 Hyperlipidemia, unspecified; R73.03 Prediabetes; J45.991 Cough variant asthma; Z12.5 Encounter for screening for malignant neoplasm of prostate
CPT/HCPCS: 80053; 80061; 83036; 84439; 84443; 85027; G0103

== ENCOUNTER → 2023-04-01 | Outpatient (REF) | payer OTHER ==
[2023-04-01 13:30] LABS: HEMOGLOBIN A1c 5.4 % (4.0-6.0)
[2023-04-01 13:38] LABS: ALBUMIN 3.8 G/DL (3.2-5.2); ALKALINE PHOSPHATASE 102 U/L (46-116); ALT/SGPT 30 U/L (7.0-40); AST/SGOT 28 U/L (<34); BILIRUBIN,TOTAL 0.8 MG/DL (0.3-1.2); BLOOD UREA NITROGEN 13 MG/DL (9-23); CALCIUM LEVEL 9.1 MG/DL (8.5-10.1); CARBON DIOXIDE LEVEL 30 MMOL/L (20-31); CHLORIDE LEVEL 106 MMOL/L (98-107); CHOLESTEROL LEVEL 183 MG/DL (<200); CREATININE FOR GFR 1.28 MG/DL (0.70-1.30); GLOMERULAR FILTRATION RATE > 60.0 (>56); GLUCOSE, FASTING 100 MG/DL (60-100); LDL CHOLESTEROL 111.2 MG/DL (<100); POTASSIUM SERUM 4.5 MMOL/L (3.5-5.1); SODIUM LEVEL 140 MMOL/L (136-145); TOTAL PROTEIN 6.5 G/DL (5.7-8.2); TRIGLYCERIDES LEVEL 209 MG/DL (<150)
[2023-04-01 13:42] LABS: FREE T4 1.46 NG/DL (0.89-1.76); THYROID STIMULATING HORMONE 0.077 uIU/ML (0.55-4.78)
== END ==
LOC: M SFHCADAM 08:51
PROVIDERS: ATTEND Family Medicine
DX: E03.9 Hypothyroidism, unspecified (principal); E78.5 Hyperlipidemia, unspecified; R73.03 Prediabetes

== ENCOUNTER → 2023-11-23 | Outpatient (REF) | payer OTHER ==
[2023-11-23 14:39] LABS: PSA SCREENING 2.83 NG/ML (< 4.00)
[2023-11-23 14:43] LABS: THYROID STIMULATING HORMONE 0.171 uIU/ML (0.55-4.78)
[2023-11-23 14:45] LABS: FREE T4 1.22 NG/DL (0.89-1.76)
[2023-11-23 14:48] LABS: ALBUMIN 3.9 G/DL (3.2-5.2); ALKALINE PHOSPHATASE 102 U/L (46-116); ALT/SGPT 28 U/L (7.0-40); AST/SGOT 27 U/L (<34); BILIRUBIN,TOTAL 0.6 MG/DL (0.3-1.2); BLOOD UREA NITROGEN 18 MG/DL (9-23); CALCIUM LEVEL 8.9 MG/DL (8.5-10.1); CARBON DIOXIDE LEVEL 29 MMOL/L (20-31); CHLORIDE LEVEL 109 MMOL/L (98-107); CHOLESTEROL LEVEL 198 MG/DL (<200); CHOLESTEROL RISK RATIO 6.99 (<5); CREATININE FOR GFR 1.17 MG/DL (0.70-1.30); GLOMERULAR FILTRATION RATE > 60.0 (>56); GLUCOSE, FASTING 95 MG/DL (60-100); HDL CHOLESTEROL 28.3 MG/DL (>40); LDL CHOLESTEROL 138.7 MG/DL (<100); NON-HDL-C 169.7 MG/DL; POTASSIUM SERUM 4.3 MMOL/L (3.5-5.1); SODIUM LEVEL 140 MMOL/L (136-145); TOTAL PROTEIN 6.8 G/DL (5.7-8.2); TRIGLYCERIDES LEVEL 155 MG/DL (<150)
[2023-11-23 15:12] LABS: HEMOGLOBIN A1c 5.5 % (4.0-6.0)
== END ==
LOC: M SFHCADAM 08:58
PROVIDERS: ATTEND Family Medicine
DX: E03.9 Hypothyroidism, unspecified (principal); E78.5 Hyperlipidemia, unspecified; R73.03 Prediabetes; Z12.5 Encounter for screening for malignant neoplasm of prostate

== ENCOUNTER → 2024-05-23 | Outpatient (REF) | payer OTHER ==
[2024-05-23 13:29] LABS: THYROID STIMULATING HORMONE 0.258 uIU/ML (0.55-4.78)
[2024-05-23 13:31] LABS: FREE T4 1.47 NG/DL (0.89-1.76)
[2024-05-23 13:36] LABS: ALKALINE PHOSPHATASE 103 U/L (46-116); ALT/SGPT 24 U/L (7.0-40); AST/SGOT 32 U/L (<34); BILIRUBIN,TOTAL 0.7 MG/DL (0.3-1.2); BLOOD UREA NITROGEN 15 MG/DL (9-23); CALCIUM LEVEL 9.2 MG/DL (8.5-10.1); CARBON DIOXIDE LEVEL 27 MMOL/L (20-31); CHLORIDE LEVEL 107 MMOL/L (98-107); CHOLESTEROL LEVEL 184 MG/DL (<200); CHOLESTEROL RISK RATIO 6.59 (<5); CREATININE FOR GFR 1.25 MG/DL (0.70-1.30); GLOMERULAR FILTRATION RATE > 60.0 (>56); GLUCOSE, FASTING 100 MG/DL (60-100); HDL CHOLESTEROL 27.9 MG/DL (>40); LDL CHOLESTEROL 122.7 MG/DL (<100); NON-HDL-C 156.1 MG/DL; POTASSIUM SERUM 4.4 MMOL/L (3.5-5.1); SODIUM LEVEL 141 MMOL/L (136-145); TRIGLYCERIDES LEVEL 167 MG/DL (<150)
[2024-05-23 13:48] LABS: HEMOGLOBIN A1c 5.5 % (4.0-6.0)
== END ==
LOC: M SFHCADAM 09:03
PROVIDERS: ATTEND Family Medicine
DX: E03.9 Hypothyroidism, unspecified (principal); E78.5 Hyperlipidemia, unspecified; R73.03 Prediabetes

== ENCOUNTER → 2024-11-10 | Outpatient (REF) | payer OTHER ==
[2024-11-10 14:53] LABS: ALBUMIN 3.9 G/DL (3.2-5.2); ALKALINE PHOSPHATASE 87 U/L (40-129); ALT/SGPT 27 U/L (7.0-40); AST/SGOT 28 U/L (<34); BILIRUBIN,TOTAL 0.5 MG/DL (0.3-1.2); BLOOD UREA NITROGEN 16 MG/DL (9-23); CALCIUM LEVEL 8.9 MG/DL (8.5-10.1); CARBON DIOXIDE LEVEL 28 MMOL/L (20-31); CHLORIDE LEVEL 111 MMOL/L (98-107); CHOLESTEROL LEVEL 185 MG/DL (<200); CHOLESTEROL RISK RATIO 6.58 (<5); CREATININE FOR GFR 1.26 MG/DL (0.70-1.30); GLOMERULAR FILTRATION RATE > 60.0 (>56); GLUCOSE, FASTING 104 MG/DL (60-100); HDL CHOLESTEROL 28.1 MG/DL (>40); LDL CHOLESTEROL 121.5 MG/DL (<100); NON-HDL-C 156.9 MG/DL; POTASSIUM SERUM 4.8 MMOL/L (3.5-5.1); PSA SCREENING 2.55 NG/ML (< 4.00); SODIUM LEVEL 143 MMOL/L (136-145); TRIGLYCERIDES LEVEL 177 MG/DL (<150)
[2024-11-10 14:54] LABS: HEMATOCRIT 50.1 % (42.0-52.0); HEMOGLOBIN 16.1 g/dl (13.5-17.5); MEAN CORPUSCULAR HEMOGLOBIN 28.3 pg (27.0-33.0); MEAN CORPUSCULAR HGB CONC 32.1 g/dl (32.0-36.5); PLATELET COUNT, AUTOMATED 287 10^3/uL (150-450); RED BLOOD COUNT 5.69 10^6/uL (4.30-6.10); WHITE BLOOD COUNT 5.6 10^3/uL (4.0-10.0)
[2024-11-10 14:57] LABS: FREE T4 1.46 NG/DL (0.89-1.76)
[2024-11-10 14:59] LABS: THYROID STIMULATING HORMONE 0.817 uIU/ML (0.55-4.78)
[2024-11-10 15:16] LABS: HEMOGLOBIN A1c 5.5 % (4.0-6.0)
== END ==
LOC: M SFHCADAM 08:54
PROVIDERS: ATTEND Family Medicine
DX: E03.9 Hypothyroidism, unspecified (principal); E78.5 Hyperlipidemia, unspecified; Z12.5 Encounter for screening for malignant neoplasm of prostate; R73.03 Prediabetes; J45.991 Cough variant asthma
CPT/HCPCS: 80053; 80061; 83036; 84439; 84443; 85027; G0103

== ENCOUNTER → 2025-07-03 | Outpatient (REF) | payer OTHER ==
[2025-07-03 19:06] LABS: ALT/SGPT 24.0 U/L (7.0-40); AST/SGOT 26.0 U/L (<34); CALCIUM LEVEL 8.8 MG/DL (8.5-10.1); CARBON DIOXIDE LEVEL 30.0 MMOL/L (20-31); CHLORIDE LEVEL 106.0 MMOL/L (98-107); CHOLESTEROL LEVEL 176.0 MG/DL (<200); CHOLESTEROL RISK RATIO 6.37 (<5); CREATININE FOR GFR 1.11 MG/DL (0.70-1.30); GLOMERULAR FILTRATION RATE 79.4 (>56); LDL CHOLESTEROL 104.2 MG/DL (<100); NON-HDL-C 148.4 MG/DL; POTASSIUM SERUM 4.2 MMOL/L (3.5-5.1); SODIUM LEVEL 142.0 MMOL/L (136-145); TRIGLYCERIDES LEVEL 221.0 MG/DL (<150)
[2025-07-03 19:08] LABS: FREE T4 1.32 NG/DL (0.89-1.76)
[2025-07-03 19:59] LABS: ESTIMATED AVERAGE GLUCOSE 117.0 MG/DL (60-110)
== END ==
LOC: M SFHCADAM 13:41
PROVIDERS: ATTEND Family Medicine
DX: E03.9 Hypothyroidism, unspecified (principal); R73.03 Prediabetes; E78.5 Hyperlipidemia, unspecified